=== PATIENT | male | born 1940 | race African-American/Black ===

== ENCOUNTER 2016-06-15 08:51 | Emergency (ER) | payer OTHER, BC ==
[~2016-06-15] VITALS: Ht 177.8 cm; Wt 95.7 kg
[~2016-06-15 08:51] MED LIST: A + D42.5 GM TOP; ACETAMINOPHEN325 M1 PO; AFEDITAB CR30 MG PO; AMLODIPINE BESYL5 MG PO; AMMONIUM LACTA225 GM TOP; AMPICILLIN TRI250 MG PO; ANTACID325 MG PO; ANTACID650 MG PO; ARANESP100 MCG/0. IJ; ARANESP40 MCG/0.4 SUBQ; ASPIRIN EC81 M1 PO; ATORVASTATIN CA10 MG PO; ATORVASTATIN CA80 MG PO; AUGMENTIN 500-1 EACH PO; AZOR PO; BACTRIM DS TAB1 EACH PO; BAYER CHEWABLE81 MG PO; BENADRYL25 MG PO; BENICAR40 MG PO; BISACODYL SUPP10 MG RECTAL; BYSTOLIC10 MG PO; CALCITRIOL0.5 MCG PO; CARDURA XL4 MG PO; CARDURA2 MG PO; CARDURA4 MG PO; CARDURA8 MG PO; CHLORHEXADINE120 M1 TOP; CIPRO250 M1 PO; CIPRO500 MG PO; CLEOCIN HCL300 MG PO; COLACE 100 MG100 MG PO; COLACE100 MG PO; COUMADIN 1MG TAB1 M1; COUMADIN 1MG TAB1 M1 PO; COUMADIN 3 MG TA3 MG; COUMADIN 3 MG TA3 MG PO; COUMADIN 4 MG TA4 M1 PO; COUMADIN 5 MG TA5 M1 PO; DEMADEX20 MG PO; DOXEPIN 10 MG C10 M1 PO; DOXYCYCLINE 10100 M1 PO; ETHYL CHLORI103.5 ML TP; EUCERIN CREME57 GM; EUCERIN CREME57 GM TOP; FLOMAX0.4 MG PO; GABAPENTIN100 MG PO; GLYCOLAX POWDER17 G1 PO; HYDRALAZINE 10M10 MG PO; HYDRALAZINE 2525 M1 PO; HYDRALAZINE 5050 MG PO; HYDROCERIN CREA1 JAR TOP; HYDROCODON-ACE1 EAC7 PO; INDAPAMIDE2.5 MG PO; IRON325 PO; JANTOVEN4 MG PO; KEFLEX500 M1 PO; KEFLEX500 MG PO; KLOR-CON 10 ER10 MEQ PO; LABETALOL 100100 MG PO; LACTINEX CHEWA1 EACH PO; LAMISIL250 MG PO; LANTUS SUBQ; LANTUS100 UNIT/M SUBQ; LIPITOR10 MG PO; LIPITOR80 MG PO; MAG-AL PLUS SUS30 ML PO; METOLAZONE 5 MG5 M1 PO; METOLAZONE 5 MG5 MG PO; MICARDIS HCT 81 EACH PO; MULTIVITAMINS1 EAC7; MULTIVITAMINS1 EAC7 PO; NEPHRO-VITE RX1 TA1 PO; NEPHRO-VITE TA0.8 MG; NIFEDICAL XL30 MG PO; NORCO 5-325 TA1 EACH PO; NORVASC10 MG PO; NOVOLOG100 UNIT/1; NOVOLOG100 UNIT/1 SUBQ; ORADENT 0.1% DEN5 G1; PANTOPRAZOLE SO40 M1 PO; PHOSLO667 M1 PO; PLAVIX 75 MG TA75 M1 PO; PROBIOTIC1 EAC1 PO; PROCRIT 1010000 U/ML IJ; PROTONIX40 M2 PO; SENNA PO; SIMETHICON CHEW80 M1 PO; SODIUM BICARBO650 M3 PO; TAMSULOSIN HCL0.4 MG PO; TRAMADOL 50 MG50 MG PO; TRIAMCINOLONE 080 G3 TOP; TUMS PO; UNICOMPLEX M TA1 TA1 PO; UREA CREAM 40%1 TUBE TP; WARFARIN SODIU7.5 MG PO
[2016-06-15 09:14] LABS: HEMATOCRIT 31.9 % (42.0-52.0); HEMOGLOBIN 10.7 gm/dL (14.0-18.0); MCH 27.6 pg (26.0-34.0); MCHC 33.6 % (28.0-37.0); MCV 82.2 fL (80.0-100.0); PLATELET COUNT 127 thou/uL (150-400); RBC 3.88 mil/uL (4.50-6.00); RDW 15.9 % (10.5-14.5); WBC 7.9 thou/uL (4.0-11.0)
[2016-06-15 09:16] LABS: MANUAL DIFF YES
[2016-06-15 09:24] LABS: CALCIUM 8.6 mg/dL (8.5-10.1); CREATININE 9.3 mg/dL (0.6-1.3); POTASSIUM 3.5 mmol/L (3.5-5.1)
[2016-06-15 09:26] LABS: ALBUMIN 3.2 g/dL (3.4-5.0); TOTAL BILIRUBIN 0.5 mg/dL (<0.1-1.0); TOTAL PROTEIN 8.6 g/dL (6.4-8.2)
[2016-06-15 09:53] LABS: ABSOLUTE NEUTROPHILS 7.2 thou/uL (1.4-8.2); PLATELET ESTIMATE NORMAL; TOTAL CELL COUNT 100
[2016-06-15] MEDS ORDERED: LEVAQUIN 500 M500 M2 PO ×2 (11:29→12:14)
[2016-06-15] MEDS ORDERED: ONDANSETRON HCL4 M2 PO (12:19)
== END 2016-06-15 13:00 | disposition home or self-care (01) ==
LOC: ER 08:51
PROVIDERS: Physician Assistant
DX: D64.9 Anemia, unspecified (principal); J18.9 Pneumonia, unspecified organism; E87.1 Hypo-osmolality and hyponatremia; N19 Unspecified kidney failure; R10.33 Periumbilical pain; E11.9 Type 2 diabetes mellitus without complications; I25.10 Atherosclerotic heart disease of native coronary artery without angina pectoris; I10 Essential (primary) hypertension; E78.00 Pure hypercholesterolemia, unspecified; Z91.040 Latex allergy status; Z87.891 Personal history of nicotine dependence; Z79.4 Long term (current) use of insulin; Z86.73 Personal history of transient ischemic attack (TIA), and cerebral infarction without residual deficits; Z86.14 Personal history of Methicillin resistant Staphylococcus aureus infection

== ENCOUNTER → 2016-08-06 | Outpatient (CLI) | payer OTHER, BC ==
[~2016-08-06] MED LIST changes: +LEVAQUIN 500 M500 M2 PO; +ONDANSETRON HCL4 M2 PO
--- NOTE | ~2016-08-06 | HC ---
[facility] [place] [address] CONSULTATION Name: RADHA DUMONT Room #: PRE [facility].#: [id number] Admission: Attend Phys: Bari Wallace MD Discharge: Date of : 42 Report #: [id number] THIS REPORT FOR: //name// CC: Sameer Wallace DATE OF SERVICE: 06/18/2016 WOUND CARE INITIAL VISIT PERSONAL PHYSICIAN: Radha Cazares DO. CHIEF COMPLAINT: Chronic foot wound, left lateral thigh ulcer and traumatic wound to the left chest. HISTORY OF PRESENT ILLNESS: This is a 75-year-old black male who has been a patient of mine for several months for an ulceration on the right transmetatarsal amputation site. The last time I saw the patient was approximately 3 weeks ago when we placed a skin substitute graft on his stump site. He states that home health nurses have believed that this is actually totally healed now. The patient, however, has developed an ulceration on his left lateral thigh from being in bed over the past few days, given his complaint of generalized weakness. The patient also states that he noted when he was being put in the ambulance yesterday they struck his left chest wall on the side of the door, causing a traumatic wound. I have been asked to assist in the care of these at this time. The patient once again is currently admitted for generalized weakness and decreased appetite. CURRENT MEDICATIONS: Multiple. I reviewed the patient's medication list. DRUG ALLERGIES: LATEX and METFORMIN. PAST MEDICAL HISTORY: Significant for a previous right transmetatarsal amputation in 2006; severe peripheral arterial disease; insulin-dependent diabetes; end-stage renal disease, on hemodialysis; hypertension; coronary artery disease and left [id number] amputation. SOCIAL HISTORY: The patient has had a history of smoking, but quit several years ago. He lives at home with his family. FAMILY HISTORY: Not pertinent to current medical condition. REVIEW OF SYSTEMS: CONSTITUTIONAL: The patient denies fevers or chills. NEUROLOGIC: The patient has generalized weakness, but no isolated weakness in the arms or legs. [address] [address] CONSULTATION Name: RADHA DUMONT Room #: PRE [facility] Sun#: [id number] Admission: Attend Phys: Bari Wallace MD Discharge: Date of : 42 Report #: [id number] EYES: No complaints. ENT: No complaints. CARDIAC: The patient denies chest pain, palpitations or peripheral edema. RESPIRATORY: The patient denies shortness breath, cough or wheezes. GASTROINTESTINAL: The patient has decreased appetite, but no actual abdominal pain, nausea, vomiting or diarrhea. GENITOURINARY: The patient denies urgency or frequency. MUSCULOSKELETAL: No complaints. SKIN: There is no previous ulceration and his right TMA site is healed. There is a stage 2 ulcer on his left lateral thigh and has a traumatic wound on his left chest wall. PHYSICAL EXAMINATION: VITAL SIGNS: Stable. The patient is afebrile. GENERAL: This is alert, oriented times 3, pleasant black male who appears somewhat more ill than his normal appearance. HEENT: Normocephalic, atraumatic. Mucous membranes are dry. Pupils are round. Sclerae white. NECK: Without JVD or masses. LUNGS: Slightly diminished breath sounds heard throughout, but no rhonchi or wheezes. CHEST: Nontender. On the left chest fall is a traumatic wound, which is clean and granulating, it is partial thickness. HEART: Regular. ABDOMEN: Soft, otherwise nontender without rebound or guarding. EXTREMITIES: Evaluation of the right lower extremity shows significant hyperkeratosis with a transmetatarsal amputation site, which is totally healed. There are no open wounds on the right lower extremity. On the left, BKA lateral thigh has a stage 2 decubitus ulcer, which is clean and granulating. Evaluation of the coccygeal area also reveals a stage 2 decubitus ulcer in the coccygeal region. NEUROLOGIC: Cranial nerves 2-12 are grossly. Motor and sensory grossly intact. LABORATORY DATA: White count 4.5, hemoglobin 8.8. WOUND CARE COURSE: At this time, I spoke at length with the patient and stated that we will just put moisturizer on his right lower extremity for his hyperkeratosis as well as start morphine and Silvadene cream to the sacrococcygeal region as well as to the left lateral thigh ulcer and the left chest fall for pain relief as well as to aid in the healing. We will order a low air loss mattress for the patient given his immobility. We will have the patient turned every 2 hours. We will make sure we maximize the patient's protein supplementation as his renal diet will allow. We will continue to follow the patient while he is here. [address] [address] CONSULTATION Name: RADHA DUMONT Room #: PRE [facility]#: [id number] Admission: Attend Phys: Bari Wallace MD Discharge: Date of : 42 Report #: [id number] I appreciate the ability to consult on this patient. <ELECTRONICALLY SIGNED> By: Bari Wallace MD 07/16/16 1301 1757 [id number] Bari Wallace MD /nt
== END ==
LOC: HYPER
DX: I70.234 Atherosclerosis of native arteries of right leg with ulceration of heel and midfoot (principal); L97.412 Non-pressure chronic ulcer of right heel and midfoot with fat layer exposed; E11.621 Type 2 diabetes mellitus with foot ulcer; E11.51 Type 2 diabetes mellitus with diabetic peripheral angiopathy without gangrene; Z89.421 Acquired absence of other right toe(s); E11.22 Type 2 diabetes mellitus with diabetic chronic kidney disease; I12.9 Hypertensive chronic kidney disease with stage 1 through stage 4 chronic kidney disease, or unspecified chronic kidney disease; N18.9 Chronic kidney disease, unspecified; Z79.4 Long term (current) use of insulin; E78.00 Pure hypercholesterolemia, unspecified; Z86.73 Personal history of transient ischemic attack (TIA), and cerebral infarction without residual deficits; Z87.891 Personal history of nicotine dependence

== ENCOUNTER → 2016-08-20 | Outpatient (CLI) | payer OTHER, BC | LOC: HYPER 07:00 | DX: I87.331 Chronic venous hypertension (idiopathic) with ulcer and inflammation of right lower extremity (principal); E11.622 Type 2 diabetes mellitus with other skin ulcer; L97.811 Non-pressure chronic ulcer of other part of right lower leg limited to breakdown of skin; E11.621 Type 2 diabetes mellitus with foot ulcer; L97.511 Non-pressure chronic ulcer of other part of right foot limited to breakdown of skin; E11.51 Type 2 diabetes mellitus with diabetic peripheral angiopathy without gangrene; E11.22 Type 2 diabetes mellitus with diabetic chronic kidney disease; I12.9 Hypertensive chronic kidney disease with stage 1 through stage 4 chronic kidney disease, or unspecified chronic kidney disease; N18.9 Chronic kidney disease, unspecified; R60.0 Localized edema; I25.10 Atherosclerotic heart disease of native coronary artery without angina pectoris; E78.00 Pure hypercholesterolemia, unspecified; Z79.4 Long term (current) use of insulin; Z89.421 Acquired absence of other right toe(s); Z86.73 Personal history of transient ischemic attack (TIA), and cerebral infarction without residual deficits; Z87.891 Personal history of nicotine dependence ==

== ENCOUNTER → 2016-09-29 | Outpatient (CLI) | payer OTHER, BC | LOC: HYPER 09-15 07:16 | DX: I87.2 Venous insufficiency (chronic) (peripheral) (principal); L97.812 Non-pressure chronic ulcer of other part of right lower leg with fat layer exposed; R60.0 Localized edema; E11.51 Type 2 diabetes mellitus with diabetic peripheral angiopathy without gangrene; I25.10 Atherosclerotic heart disease of native coronary artery without angina pectoris; E78.00 Pure hypercholesterolemia, unspecified; E11.22 Type 2 diabetes mellitus with diabetic chronic kidney disease; I12.9 Hypertensive chronic kidney disease with stage 1 through stage 4 chronic kidney disease, or unspecified chronic kidney disease; N18.9 Chronic kidney disease, unspecified; Z95.1 Presence of aortocoronary bypass graft; Z89.512 Acquired absence of left leg below knee; Z68.30 Body mass index [BMI] 30.0-30.9, adult; Z87.891 Personal history of nicotine dependence; Z89.421 Acquired absence of other right toe(s); Z79.4 Long term (current) use of insulin; Z86.73 Personal history of transient ischemic attack (TIA), and cerebral infarction without residual deficits; Z85.09 Personal history of malignant neoplasm of other digestive organs ==

== ENCOUNTER → 2016-10-29 | Outpatient (CLI) | payer OTHER, BC | LOC: HYPER 07:18 | DX: I87.2 Venous insufficiency (chronic) (peripheral) (principal); E11.622 Type 2 diabetes mellitus with other skin ulcer; L97.812 Non-pressure chronic ulcer of other part of right lower leg with fat layer exposed; E11.51 Type 2 diabetes mellitus with diabetic peripheral angiopathy without gangrene; I25.10 Atherosclerotic heart disease of native coronary artery without angina pectoris; E78.00 Pure hypercholesterolemia, unspecified; E11.22 Type 2 diabetes mellitus with diabetic chronic kidney disease; I12.9 Hypertensive chronic kidney disease with stage 1 through stage 4 chronic kidney disease, or unspecified chronic kidney disease; N18.9 Chronic kidney disease, unspecified; Z79.4 Long term (current) use of insulin; Z86.73 Personal history of transient ischemic attack (TIA), and cerebral infarction without residual deficits; Z85.09 Personal history of malignant neoplasm of other digestive organs; Z95.1 Presence of aortocoronary bypass graft; Z89.431 Acquired absence of right foot; Z89.512 Acquired absence of left leg below knee; Z87.891 Personal history of nicotine dependence ==

== ENCOUNTER → 2016-12-15 | Outpatient (CLI) | payer OTHER, BC | LOC: HYPER 11-26 06:58 | DX: I87.2 Venous insufficiency (chronic) (peripheral) (principal); L97.812 Non-pressure chronic ulcer of other part of right lower leg with fat layer exposed; E11.622 Type 2 diabetes mellitus with other skin ulcer; E11.51 Type 2 diabetes mellitus with diabetic peripheral angiopathy without gangrene; E11.22 Type 2 diabetes mellitus with diabetic chronic kidney disease; I12.9 Hypertensive chronic kidney disease with stage 1 through stage 4 chronic kidney disease, or unspecified chronic kidney disease; N18.9 Chronic kidney disease, unspecified; I25.10 Atherosclerotic heart disease of native coronary artery without angina pectoris; E78.00 Pure hypercholesterolemia, unspecified; Z89.421 Acquired absence of other right toe(s); Z79.4 Long term (current) use of insulin; Z86.73 Personal history of transient ischemic attack (TIA), and cerebral infarction without residual deficits; Z85.29 Personal history of malignant neoplasm of other respiratory and intrathoracic organs; Z95.1 Presence of aortocoronary bypass graft; Z89.512 Acquired absence of left leg below knee; Z89.431 Acquired absence of right foot; Z87.891 Personal history of nicotine dependence ==

== ENCOUNTER → 2017-01-19 | Outpatient (CLI) | payer OTHER, BC | LOC: HYPER 07:16 | DX: I87.2 Venous insufficiency (chronic) (peripheral) (principal); L97.812 Non-pressure chronic ulcer of other part of right lower leg with fat layer exposed; E11.622 Type 2 diabetes mellitus with other skin ulcer; E11.51 Type 2 diabetes mellitus with diabetic peripheral angiopathy without gangrene; I25.10 Atherosclerotic heart disease of native coronary artery without angina pectoris; E78.00 Pure hypercholesterolemia, unspecified; E11.22 Type 2 diabetes mellitus with diabetic chronic kidney disease; I12.9 Hypertensive chronic kidney disease with stage 1 through stage 4 chronic kidney disease, or unspecified chronic kidney disease; N18.9 Chronic kidney disease, unspecified; Z95.1 Presence of aortocoronary bypass graft; Z89.512 Acquired absence of left leg below knee; Z86.73 Personal history of transient ischemic attack (TIA), and cerebral infarction without residual deficits; Z79.4 Long term (current) use of insulin; Z89.421 Acquired absence of other right toe(s); Z87.891 Personal history of nicotine dependence ==

== ENCOUNTER → 2017-02-23 | Outpatient (CLI) | payer OTHER, BC | LOC: HYPER 07:08 | DX: I87.2 Venous insufficiency (chronic) (peripheral) (principal); E11.622 Type 2 diabetes mellitus with other skin ulcer; L97.812 Non-pressure chronic ulcer of other part of right lower leg with fat layer exposed; R60.0 Localized edema; E11.51 Type 2 diabetes mellitus with diabetic peripheral angiopathy without gangrene; E11.22 Type 2 diabetes mellitus with diabetic chronic kidney disease; N18.9 Chronic kidney disease, unspecified; Z86.73 Personal history of transient ischemic attack (TIA), and cerebral infarction without residual deficits; E78.00 Pure hypercholesterolemia, unspecified; Z95.1 Presence of aortocoronary bypass graft; Z87.891 Personal history of nicotine dependence; Z89.512 Acquired absence of left leg below knee; Z89.511 Acquired absence of right leg below knee ==

== ENCOUNTER → 2017-07-06 | Outpatient (CLI) | payer OTHER ==
[~2017-07-06] MED LIST changes: +CYCLOBENZAPRINE5 MG PO; +LABETALOL HCL100 MG PO; +NIFEDIPINE ER30 M1 PO; +NORCO 10-325 T1 EACH PO
== END ==
LOC: HYPER 06:50
DX: T87.89 Other complications of amputation stump (principal); E11.622 Type 2 diabetes mellitus with other skin ulcer; L97.812 Non-pressure chronic ulcer of other part of right lower leg with fat layer exposed; E11.51 Type 2 diabetes mellitus with diabetic peripheral angiopathy without gangrene; E11.22 Type 2 diabetes mellitus with diabetic chronic kidney disease; I12.9 Hypertensive chronic kidney disease with stage 1 through stage 4 chronic kidney disease, or unspecified chronic kidney disease; N18.9 Chronic kidney disease, unspecified; I87.2 Venous insufficiency (chronic) (peripheral); E78.00 Pure hypercholesterolemia, unspecified; I25.10 Atherosclerotic heart disease of native coronary artery without angina pectoris; Z89.421 Acquired absence of other right toe(s); Z79.4 Long term (current) use of insulin; Z86.73 Personal history of transient ischemic attack (TIA), and cerebral infarction without residual deficits; Z87.891 Personal history of nicotine dependence; Z95.1 Presence of aortocoronary bypass graft; Y83.5 Amputation of limb(s) as the cause of abnormal reaction of the patient, or of later complication, without mention of misadventure at the time of the procedure

== ENCOUNTER → 2017-07-22 | Outpatient (CLI) | payer OTHER | LOC: HYPER 07-20 07:04 | DX: T87.89 Other complications of amputation stump (principal); E11.622 Type 2 diabetes mellitus with other skin ulcer; I87.2 Venous insufficiency (chronic) (peripheral); L97.812 Non-pressure chronic ulcer of other part of right lower leg with fat layer exposed; R60.0 Localized edema; E11.51 Type 2 diabetes mellitus with diabetic peripheral angiopathy without gangrene; I25.10 Atherosclerotic heart disease of native coronary artery without angina pectoris; E78.00 Pure hypercholesterolemia, unspecified; Z79.4 Long term (current) use of insulin; Z86.73 Personal history of transient ischemic attack (TIA), and cerebral infarction without residual deficits; Z95.1 Presence of aortocoronary bypass graft; Z89.512 Acquired absence of left leg below knee; Z89.431 Acquired absence of right foot; Z87.891 Personal history of nicotine dependence; Y83.5 Amputation of limb(s) as the cause of abnormal reaction of the patient, or of later complication, without mention of misadventure at the time of the procedure ==

== ENCOUNTER → 2017-08-05 | Outpatient (CLI) | payer OTHER | LOC: HYPER 07:00 | DX: T87.89 Other complications of amputation stump (principal); E11.622 Type 2 diabetes mellitus with other skin ulcer; L97.812 Non-pressure chronic ulcer of other part of right lower leg with fat layer exposed; E11.51 Type 2 diabetes mellitus with diabetic peripheral angiopathy without gangrene; I87.2 Venous insufficiency (chronic) (peripheral); I10 Essential (primary) hypertension; E78.00 Pure hypercholesterolemia, unspecified; L84 Corns and callosities; I25.10 Atherosclerotic heart disease of native coronary artery without angina pectoris; Z85.038 Personal history of other malignant neoplasm of large intestine; Z86.73 Personal history of transient ischemic attack (TIA), and cerebral infarction without residual deficits; Z79.4 Long term (current) use of insulin; Z87.891 Personal history of nicotine dependence; Z95.1 Presence of aortocoronary bypass graft; Y83.5 Amputation of limb(s) as the cause of abnormal reaction of the patient, or of later complication, without mention of misadventure at the time of the procedure ==

== ENCOUNTER → 2017-08-19 | Outpatient (CLI) | payer OTHER | LOC: HYPER 07:23 | DX: T87.89 Other complications of amputation stump (principal); E11.622 Type 2 diabetes mellitus with other skin ulcer; L97.812 Non-pressure chronic ulcer of other part of right lower leg with fat layer exposed; I87.2 Venous insufficiency (chronic) (peripheral); E11.51 Type 2 diabetes mellitus with diabetic peripheral angiopathy without gangrene; Z79.4 Long term (current) use of insulin; R60.0 Localized edema; E11.22 Type 2 diabetes mellitus with diabetic chronic kidney disease; I12.9 Hypertensive chronic kidney disease with stage 1 through stage 4 chronic kidney disease, or unspecified chronic kidney disease; N18.9 Chronic kidney disease, unspecified; E78.00 Pure hypercholesterolemia, unspecified; Z86.73 Personal history of transient ischemic attack (TIA), and cerebral infarction without residual deficits; Z95.1 Presence of aortocoronary bypass graft; Z87.891 Personal history of nicotine dependence; Y83.5 Amputation of limb(s) as the cause of abnormal reaction of the patient, or of later complication, without mention of misadventure at the time of the procedure ==

== ENCOUNTER 2017-08-27 13:31 | Emergency (ER) | payer OTHER ==
[~2017-08-27] VITALS: Ht 177.8 cm; Wt 96.6 kg
[~2017-08-27 13:31] MED LIST changes: -CYCLOBENZAPRINE5 MG PO; -LABETALOL HCL100 MG PO; -NIFEDIPINE ER30 M1 PO; -NORCO 10-325 T1 EACH PO
[2017-08-27 14:31] LABS: URINE BILIRUBIN NEGATIVE (Negative); URINE BLOOD 3+ (Negative); URINE CLARITY CLOUDY; URINE GLUCOSE-RANDOM* NEGATIVE (Negative); URINE KETONES NEGATIVE (Negative); URINE NITRITE-REFLEX NEGATIVE (Negative); URINE PROTEIN (DIPSTICK) 2+ (Negative); URINE UROBILINOGEN 0.2 E.U./dl (0.2-1.0)
[2017-08-27 14:34] LABS: URINE LEUKOCYTES-REFLEX 3+ (Negative)
[2017-08-27 14:37] LABS: URINE COLOR PINK
[2017-08-27 14:41] LABS: ABSOLUTE NEUTROPHILS 9.3 thou/uL (1.4-8.2); BASOPHILS 0.6 % (0.0-2.0); HEMATOCRIT 31.8 % (42.0-52.0); HEMOGLOBIN 10.3 gm/dL (14.0-18.0); LYMPHOCYTES 8.7 % (24.0-44.0); MCH 26.6 pg (26.0-34.0); MCHC 32.3 g/dL (28.0-37.0); MCV 82.2 fL (80.0-100.0); MONOCYTES 4.8 % (1.0-8.0); PLATELET COUNT 127 thou/uL (150-400); POLYS 83.9 % (36.0-66.0); RBC 3.87 mil/uL (4.50-6.00); RDW 16.5 % (10.5-14.5); WBC 11.1 thou/uL (4.0-11.0)
[2017-08-27 14:42] LABS: BACTERIA-REFLEX >30 Many /HPF (None Seen); CASTS None Seen /LPF (None Seen); CRYSTALS None Seen /LPF (None Seen); SQUAMOUS None Seen /LPF (0-3); URINE RBC >20 Many /HPF (0-2); URINE WBC-REFLEX >25 Many /HPF (0-5); WBC CLUMPS Packed (None Seen)
[2017-08-27 15:08] LABS: CALCIUM 9.3 mg/dL (8.5-10.1); CREATININE 5.4 mg/dL (0.7-1.3); POTASSIUM 4.9 mmol/L (3.5-5.1)
[2017-08-27 15:11] LABS: ALBUMIN 3.6 g/dL (3.4-5.0); TOTAL BILIRUBIN 0.8 mg/dL (<0.1-1.0); TOTAL PROTEIN 8.8 g/dL (6.4-8.2)
[2017-08-27] MEDS ORDERED: KEFLEX500 M1 PO (15:11)
== END 2017-08-27 16:38 | disposition home or self-care (01) ==
LOC: ER 13:31
PROVIDERS: Emergency Medicine
DX: N39.0 Urinary tract infection, site not specified (principal); I10 Essential (primary) hypertension; E11.9 Type 2 diabetes mellitus without complications; I25.10 Atherosclerotic heart disease of native coronary artery without angina pectoris; E78.00 Pure hypercholesterolemia, unspecified; Z87.891 Personal history of nicotine dependence; Z91.040 Latex allergy status

== ENCOUNTER 2017-11-24 09:49 | Emergency (ER) | payer OTHER ==
[~2017-11-24] VITALS: Ht 170.2 cm; Wt 96.6 kg
--- NOTE | ~2017-11-24 | HC ---
[facility] [address] CONSULTATION Name: JULIARADHA GÉNESIS Room #: DEP Sun#: [id number] Admission: 11/24/17 Attend Phys: Discharge: 11/24/17 Date of : 42 Report #: [id number] THIS REPORT FOR: //name// CC: Janae Holley The patient is a 76-year-old male who has had a 2-3 year history of a suprapubic tube. He states that the home healthcare nurse had stated it was getting harder and harder to change and she thought he needed a smaller catheter. He has only had a 16-Canadian catheter in his suprapubic site. 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 He states sometime last night, his suprapubic tube catheter came out, so it has been out for over 12 hours of period. Emergency Room team had tried multiple different times to put a catheter through the site, but it was totally obstructed. PAST MEDICAL HISTORY: Per the chart. PHYSICAL EXAMINATION: His suprapubic tube site is totally scarred down to just a pinpoint opening. In fact I am surprised we were able to get a catheter through that whatsoever. IMPRESSION AND PLAN: Urinary retention. We are going to attempt to pass a wire and possibly dilate the suprapubic tube site or the urethra. If not, he will need Interventional Radiology for placement of the suprapubic tube and would recommend placing a larger catheter given the scar tissue that he is noted to have around this current site. PROCEDURE NOTE: The area was prepped and draped. I tried a 0.035 sensor wire. I was able to get something through, but dilating was good what sounds just had total rock tissue with little and very uncomfortable for the patient. I did attempt to pass a 12-Canadian catheter through the site opening, it would not pass. I tried a 16-Canadian cher-ae heights tip catheter over the wire. It would not pass. I tried to pass a cher-ae heights tip catheter over wire through the urethra. It would not pass because this urethra was obliterated. After multiple different attempts to try to pass the catheter, I have recommended that Interventional Radiology place a larger suprapubic tubes. I have also recommended that patient be given Cipro 500 mg x 1 for intervention. By: 1403 [id number] Julio Gómez MD /nt
== END 2017-11-24 14:53 | disposition home or self-care (01) ==
LOC: ER 09:49
DX: T83.098A Other mechanical complication of other urinary catheter, initial encounter (principal); E11.9 Type 2 diabetes mellitus without complications; I10 Essential (primary) hypertension; I25.10 Atherosclerotic heart disease of native coronary artery without angina pectoris; E78.00 Pure hypercholesterolemia, unspecified; Z85.46 Personal history of malignant neoplasm of prostate; Z90.79 Acquired absence of other genital organ(s); Z91.040 Latex allergy status; Z88.2 Allergy status to sulfonamides; Z87.891 Personal history of nicotine dependence

== ENCOUNTER → 2017-11-25 | Outpatient (CLI) | payer OTHER ==
[2017-11-25 08:55] LABS: HEMATOCRIT 34.1 % (42.0-52.0); HEMOGLOBIN 11.7 gm/dL (14.0-18.0); MCHC 34.2 g/dL (28.0-37.0); RBC 4.31 mil/uL (4.50-6.00); RDW 17.7 % (10.5-14.5); WBC 8.6 thou/uL (4.0-11.0)
[2017-11-25 09:08] LABS: CALCIUM 8.8 mg/dL (8.5-10.1); CREATININE 7.6 mg/dL (0.7-1.3); POTASSIUM 4.4 mmol/L (3.5-5.1)
[2017-11-25 09:09] LABS: APTT 22.7 Seconds (24.5-32.8); PROTIME 10.7 Seconds (9.3-11.4)
[2017-11-25 11:39] VITALS: BP 100/62
== END | disposition home or self-care (01) ==
LOC: SPEC 08:23
PROVIDERS: Radiology Vascular & Interventional Radiology
DX: R33.8 Other retention of urine (principal); I12.0 Hypertensive chronic kidney disease with stage 5 chronic kidney disease or end stage renal disease; E11.22 Type 2 diabetes mellitus with diabetic chronic kidney disease; N18.6 End stage renal disease; Z99.2 Dependence on renal dialysis; E11.51 Type 2 diabetes mellitus with diabetic peripheral angiopathy without gangrene; I25.10 Atherosclerotic heart disease of native coronary artery without angina pectoris; Z86.73 Personal history of transient ischemic attack (TIA), and cerebral infarction without residual deficits; Z98.890 Other specified postprocedural states; Z85.46 Personal history of malignant neoplasm of prostate; E78.00 Pure hypercholesterolemia, unspecified; Z87.891 Personal history of nicotine dependence

== ENCOUNTER 2017-11-30 14:22 | Emergency (ER) | payer OTHER ==
[~2017-11-30] VITALS: Ht 177.8 cm; Wt 96.6 kg
[2017-11-30 15:15] LABS: URINE BILIRUBIN NEGATIVE (Negative); URINE BLOOD 2+ (Negative); URINE CLARITY CLEAR; URINE COLOR YELLOW; URINE GLUCOSE-RANDOM* NEGATIVE (Negative); URINE KETONES TRACE (Negative); URINE LEUKOCYTES-REFLEX TRACE (Negative); URINE NITRITE-REFLEX NEGATIVE (Negative); URINE PROTEIN (DIPSTICK) 2+ (Negative); URINE UROBILINOGEN 0.2 E.U./dl (0.2-1.0)
[2017-11-30 15:27] LABS: BACTERIA-REFLEX None Seen /HPF (None Seen); CASTS None Seen /LPF (None Seen); CRYSTALS None Seen /LPF (None Seen); MUCUS >6 Heavy strn/LPF (None Seen); SQUAMOUS 0-3 Few /LPF (0-3); URINE RBC 3-10 Few /HPF (0-2); URINE WBC-REFLEX 6-15 Few /HPF (0-5); WBC CLUMPS Few (None Seen)
[2017-11-30] MEDS ORDERED: CIPRO500 MG PO (15:53)
[2017-11-30] MEDS ORDERED: CYCLOBENZAPRINE5 MG PO (15:54)
[2017-11-30] MEDS ORDERED: NORCO 10-325 T1 EACH PO (15:54)
[2017-11-30] MEDS ORDERED: NIFEDIPINE ER30 M1 PO (15:56)
[2017-11-30] MEDS ORDERED: LABETALOL HCL100 MG PO (15:56)
== END 2017-11-30 16:40 | disposition home or self-care (01) ==
LOC: ER 14:22
PROVIDERS: Physician Assistant
DX: N39.0 Urinary tract infection, site not specified (principal); E11.9 Type 2 diabetes mellitus without complications; I10 Essential (primary) hypertension; I25.10 Atherosclerotic heart disease of native coronary artery without angina pectoris; E78.00 Pure hypercholesterolemia, unspecified; Z87.39 Personal history of other diseases of the musculoskeletal system and connective tissue; Z79.4 Long term (current) use of insulin; Z90.79 Acquired absence of other genital organ(s); Z85.46 Personal history of malignant neoplasm of prostate; Z86.73 Personal history of transient ischemic attack (TIA), and cerebral infarction without residual deficits; Z87.891 Personal history of nicotine dependence; Z91.040 Latex allergy status; Z88.8 Allergy status to other drugs, medicaments and biological substances

== ENCOUNTER → 2017-12-09 | Outpatient (CLI) | payer OTHER ==
[~2017-12-09] MED LIST changes: +CYCLOBENZAPRINE5 MG PO; +LABETALOL HCL100 MG PO; +NIFEDIPINE ER30 M1 PO; +NORCO 10-325 T1 EACH PO
== END ==
LOC: HYPER 11-30 06:59
DX: T87.89 Other complications of amputation stump (principal); E11.622 Type 2 diabetes mellitus with other skin ulcer; L97.812 Non-pressure chronic ulcer of other part of right lower leg with fat layer exposed; E11.51 Type 2 diabetes mellitus with diabetic peripheral angiopathy without gangrene; E11.22 Type 2 diabetes mellitus with diabetic chronic kidney disease; I12.9 Hypertensive chronic kidney disease with stage 1 through stage 4 chronic kidney disease, or unspecified chronic kidney disease; N18.9 Chronic kidney disease, unspecified; I25.10 Atherosclerotic heart disease of native coronary artery without angina pectoris; E78.00 Pure hypercholesterolemia, unspecified; Z79.4 Long term (current) use of insulin; Z86.73 Personal history of transient ischemic attack (TIA), and cerebral infarction without residual deficits; Z89.421 Acquired absence of other right toe(s); Z87.891 Personal history of nicotine dependence; Z95.1 Presence of aortocoronary bypass graft; Y83.5 Amputation of limb(s) as the cause of abnormal reaction of the patient, or of later complication, without mention of misadventure at the time of the procedure

== ENCOUNTER → 2017-12-23 | Outpatient (CLI) | payer OTHER ==
[~2017-12-23] VITALS: Ht 177.8 cm; Wt 96.6 kg
[2017-12-23 09:31] VITALS: BP 170/87
[2017-12-23 11:33] LABS: BASOPHILS 0.3 % (0.0-2.0); EOSINOPHILS 4.2 % (0.0-3.0); HEMATOCRIT 36.3 % (42.0-52.0); LYMPHOCYTES 19.7 % (24.0-44.0); MCH 26.6 pg (26.0-34.0); MCV 80.5 fL (80.0-100.0); MONOCYTES 6.5 % (1.0-8.0); PLATELET COUNT 117 thou/uL (150-400); POLYS 69.3 % (36.0-66.0); RBC 4.51 mil/uL (4.50-6.00); RDW 18.6 % (10.5-14.5); WBC 5.8 thou/uL (4.0-11.0)
[2017-12-23 11:47] LABS: ALBUMIN 3.8 g/dL (3.4-5.0); ANION GAP 5 mmol/L (7-16); BUN 29 mg/dL (7-18); CALCIUM 9.4 mg/dL (8.5-10.1); CHLORIDE 102 mmol/L (98-107); CHOLESTEROL 153 mg/dL (<200); CO2 28 mmol/L (21-32); CREATININE 5.4 mg/dL (0.7-1.3); GLUCOSE 95 mg/dL (74-106); HDL CHOLESTEROL 48 mg/dL (>40); LDL CHOLESTEROL 97 mg/dL (<100); MAGNESIUM 2.2 mg/dL (1.8-2.4); POTASSIUM 4.4 mmol/L (3.5-5.1); SGOT 13 U/L (15-37); SGPT 13 U/L (30-65); SODIUM 135 mmol/L (136-145); TC:HDL 3.2 Ratio (Not establshd); TOTAL BILIRUBIN 0.5 mg/dL (<0.1-1.0); TOTAL PROTEIN 8.6 g/dL (6.4-8.2); TRIGLYCERIDE 43 mg/dL (<150); VLDL 9 mg/dL (<40)
[2017-12-23 12:32] LABS: TSH 1.629 uIU/mL (0.358-3.740)
[2017-12-23 12:54] LABS: ANISOCYTOSIS 1+; MICROCYTES 1+; PLATELET ESTIMATE NORMAL
[2017-12-24 02:08] LABS: GLYCOHEMOGLOBIN (HGB A1C) 5.1 % (4.8-5.6)
== END ==
LOC: SEN 08:00
PROVIDERS: Nurse Practitioner Family
DX: Z09 Encounter for follow-up examination after completed treatment for conditions other than malignant neoplasm (principal); I10 Essential (primary) hypertension; E11.9 Type 2 diabetes mellitus without complications; E78.00 Pure hypercholesterolemia, unspecified

== ENCOUNTER 2018-02-22 09:19 | Emergency (ER) | payer OTHER ==
[~2018-02-22] VITALS: Ht 175.3 cm; Wt 95.7 kg
[2018-02-22 11:03] LABS: URINE BILIRUBIN NEGATIVE (Negative); URINE BLOOD 3+ (Negative); URINE CLARITY CLOUDY; URINE COLOR RED; URINE GLUCOSE-RANDOM* TRACE (Negative); URINE KETONES NEGATIVE (Negative); URINE LEUKOCYTES-REFLEX 2+ (Negative); URINE NITRITE-REFLEX NEGATIVE (Negative); URINE PROTEIN (DIPSTICK) 3+ (Negative); URINE SPECIFIC GRAVITY 1.015 (1.005-1.035); URINE UROBILINOGEN 0.2 E.U./dl (0.2-1.0)
[2018-02-22 11:11] LABS: CASTS None Seen /LPF (None Seen); SQUAMOUS 0-3 Few /LPF (0-3); URINE WBC-REFLEX >25 Many /HPF (0-5)
[2018-02-22 11:12] LABS: BACTERIA-REFLEX 1-9 Few /HPF (None Seen); CRYSTALS None Seen /LPF (None Seen); WBC CLUMPS Moderate (None Seen)
[2018-02-22] MEDS ORDERED: CIPRO500 MG PO (11:16)
== END 2018-02-22 11:40 | disposition home or self-care (01) ==
LOC: ER 09:19
PROVIDERS: Nurse Practitioner Family
DX: T83.018A Breakdown (mechanical) of other urinary catheter, initial encounter (principal); R33.9 Retention of urine, unspecified; N39.0 Urinary tract infection, site not specified; R31.9 Hematuria, unspecified; I10 Essential (primary) hypertension; E11.9 Type 2 diabetes mellitus without complications; E78.00 Pure hypercholesterolemia, unspecified; Z90.79 Acquired absence of other genital organ(s); Z86.73 Personal history of transient ischemic attack (TIA), and cerebral infarction without residual deficits; Z87.891 Personal history of nicotine dependence; Z91.040 Latex allergy status; Z88.8 Allergy status to other drugs, medicaments and biological substances

== ENCOUNTER 2018-03-25 06:05 | Emergency (ER) | payer OTHER ==
[~2018-03-25] VITALS: Ht 104.1 cm; Wt 83.9 kg
[2018-03-25 09:40] VITALS: BP 185/94
== END 2018-03-25 10:31 | disposition home or self-care (01) ==
LOC: ER 06:05
DX: T83.098A Other mechanical complication of other urinary catheter, initial encounter (principal); Y84.6 Urinary catheterization as the cause of abnormal reaction of the patient, or of later complication, without mention of misadventure at the time of the procedure; Y82.8 Other medical devices associated with adverse incidents

== ENCOUNTER → 2018-04-12 | Outpatient (CLI) | payer OTHER ==
[~2018-04-12] MED LIST changes: +ETHYL CHLORI103.5 ML SPRAY; +RENAPLEX-D TAB1 EACH PO
[2018-04-12 08:56] VITALS: BP 159/81
== END ==
LOC: SEN 04-07 17:19
DX: I12.9 Hypertensive chronic kidney disease with stage 1 through stage 4 chronic kidney disease, or unspecified chronic kidney disease (principal); E11.22 Type 2 diabetes mellitus with diabetic chronic kidney disease; N18.9 Chronic kidney disease, unspecified; E11.9 Type 2 diabetes mellitus without complications; E55.9 Vitamin D deficiency, unspecified; K21.9 Gastro-esophageal reflux disease without esophagitis; Z79.4 Long term (current) use of insulin

== ENCOUNTER 2018-05-27 11:16 | Inpatient (IN) | payer OTHER ==
[~2018-05-27] VITALS: Ht 175.3 cm; Wt 91.4 kg
[2018-05-27 11:17] VITALS: BP 135/75
[2018-05-27 12:03] LABS: HEMATOCRIT 32.5 % (42.0-52.0); HEMOGLOBIN 10.9 gm/dL (14.0-18.0); MCH 26.1 pg (26.0-34.0); MCHC 33.5 g/dL (28.0-37.0); MCV 77.9 fL (80.0-100.0); RBC 4.18 mil/uL (4.50-6.00); RDW 17.4 % (10.5-14.5); WBC 25.6 thou/uL (4.0-11.0)
[2018-05-27 12:10] LABS: CALCIUM 8.5 mg/dL (8.5-10.1); CREATININE 6.6 mg/dL (0.7-1.3)
[2018-05-27 12:11] LABS: POTASSIUM 2.7 mmol/L (3.5-5.1)
[2018-05-27 12:16] LABS: ALBUMIN 2.9 g/dL (3.4-5.0); TOTAL PROTEIN 7.6 g/dL (6.4-8.2)
[2018-05-27 12:24] LABS: ABSOLUTE NEUTROPHILS 24.3 thou/uL (1.4-8.2); ATYPICAL LYMPHS 1 %
[2018-05-27 12:26] LABS: ANISOCYTOSIS 1+; PLATELET COUNT 93 thou/uL (150-400)
[2018-05-27 13:33] VITALS: BP 122/66
[2018-05-27 13:45] VITALS: BP 122/66
[2018-05-27 14:36] VITALS: BP 111/62
--- NOTE | 2018-05-27 16:10 | NUR ---
assessment: CM REVIEWED CHART AND MET WITH PATIENT AND HIS AT THE BEDSIDE. PT IS ALERT AND ORIENTED X4. PT WAS ADMITTED FOR DIARRHEA AND IS BEING TESTED FOR CDIFF. PT REPORTS HE LIVES AT HOME WITH HIS IN A HOUSE. PT REPORTS HAVING A RAMP TO ENTER INTO THE HOME AND NO STEPS ONCE INSIDE. PT REPORTS HE AMBULTES IN WHEELCHAIR. PT IS CURRENTLY IN SERVICES WITH [facility] AND GOES TO [facility]([phone]) [facility] FOR DIALYSIS M/W/F. PT REPORTS HE HAS BEEN TO [facility] IN THE PAST. PT STATES HE FEELS WEAK AND MAY NEED TO GO TO REHAB AGAIN AND IF SO WOULD LIKE TO GO BACK TO [facility]. CM WILL CONTINUE TO FOLLOW PENDING RECOMMENDATIONS.
[2018-05-27] MEDS ORDERED: RENAPLEX-D TAB1 EACH PO (18:22)
[2018-05-27] MEDS ORDERED: NITROGLYCERIN0.4 MG SUBLING (18:25)
--- NOTE | 2018-05-27 18:38 | NUR ---
PATIENT ADMIT TO UNIT FROM ER AT 1430. A/O X4. PLEASANT. NO DIARRHA NOTED AFTER BEEM ADMIT TO UNIT. C/O LEFT LEG PAIN. PATIENT HAD LEFT BKA AND RIGHT FOOT PARTIAL AMPUTATION. ON BED REST. VSS. WILL KEEP MONITOR.
[2018-05-27 20:13] VITALS: BP 100/51
[2018-05-28 00:30] VITALS: BP 100/64
--- NOTE | 2018-05-28 03:51 | NUR ---
PATIENT IS ALERT AND ORIENTED. PATIENT IS BED REST Q2TURN. PATIENT HAS A RTFA FISTULA. PATIENT IS PENDING DIAYLSIS TODAY. PATIENT HAS NOT HAD A STOOL SENSE HE CAME TO THIS FLOOR. PATIENT IS NSR. PATIENT HAS A SUPRA PUBLIC CATH. PATIENT HAS VERY FAINT PULSE IS LRE. PATIENT HAS POOR OXYGENATION TO LOWER EXTREMITY SKIN IS SCALEY NO OPEN WOUNDS. PATIENTS PAIN IS PARTLY TREATED WITH PAIN MEDICATION. LOW AIR LOSS PUMP WAS ORDERED FOR BED. PATIENT CALLS OFTEN TO BE TURNED. PATIENT IS ON ROOM AIR. PATIENT IS RESTING IN BED. WCM. PATIENT IS PROGRESSING TO GOALS.
[2018-05-28 03:57] VITALS: BP 90/49
[2018-05-28 05:21] LABS: HEMATOCRIT 34.1 % (42.0-52.0); HEMOGLOBIN 10.7 gm/dL (14.0-18.0); MCH 25.3 pg (26.0-34.0); MCHC 31.5 g/dL (28.0-37.0); MCV 80.2 fL (80.0-100.0); PLATELET COUNT 89 thou/uL (150-400); RBC 4.25 mil/uL (4.50-6.00); RDW 17.2 % (10.5-14.5); WBC 33.1 thou/uL (4.0-11.0)
[2018-05-28 05:36] LABS: CALCIUM 8.7 mg/dL (8.5-10.1); MAGNESIUM 1.8 mg/dL (1.8-2.4)
[2018-05-28 05:38] LABS: POTASSIUM 4.1 mmol/L (3.5-5.1)
[2018-05-28 06:15] LABS: ABSOLUTE NEUTROPHILS 29.8 thou/uL (1.4-8.2); METAMYELOCYTES 1 %
[2018-05-28 06:16] LABS: PLATELET ESTIMATE DECREASED
[2018-05-28 06:21] LABS: ANISOCYTOSIS 1+
[2018-05-28 08:29] VITALS: BP 99/55
[2018-05-28 13:13] LABS: ICTOTEST (BILI CONFIRMATORY) Negative (Negative); URINE BILIRUBIN NEGATIVE (Negative); URINE CLARITY CLOUDY; URINE COLOR RED; URINE GLUCOSE-RANDOM* NEGATIVE (Negative); URINE KETONES NEGATIVE (Negative); URINE PROTEIN (DIPSTICK) 3+ (Negative)
[2018-05-28 13:14] LABS: URINE BLOOD 3+ (Negative); URINE LEUKOCYTES-REFLEX 3+ (Negative); URINE NITRITE-REFLEX POSITIVE (Negative); URINE UROBILINOGEN 0.2 E.U./dl (0.2-1.0)
[2018-05-28 13:16] LABS: CASTS None Seen /LPF (None Seen); CRYSTALS None Seen /LPF (None Seen); SQUAMOUS None Seen /LPF (0-3); URINE RBC >20 Many /HPF (0-2); URINE WBC-REFLEX 6-15 Few /HPF (0-5)
[2018-05-28 16:00] VITALS: BP 123/61
--- NOTE | 2018-05-28 18:15 | NUR ---
ASSUMED PATIENT CARE AT 0700. A/O X4. NOTED SUPRAPUBIC CATH LEAKING. BLOOD TINED URINE IN CATH. PATIENT HAS LOWER GRADE TEMP. STARTED HD AT 1330. POOR APPETITE. FAMILY AT BEDSIDE. [facility] CONSULT CALLED. NOT TOWARDS POC GOALS.
[2018-05-28 20:00] VITALS: BP 106/64
[2018-05-29 04:10] VITALS: BP 107/51
--- NOTE | 2018-05-29 05:00 | NUR ---
PATIENT IS ADVANCING SLOWLY IN HIS CARE PLAN. VITAL SIGNS STABLE WITH PATIENT HAVING NO COMPLAINTS OF NAUSEA. PATIENT DID COMPLAIN OF PAIN IN LOWER EXTREMITY AND SHOULDER WHICH WAS TREATED EFFECTIVELY WITH PRN MEDICATIONS AND NON PHARMACOLOGICAL INTERVENTIONS. PATIENT MOSTLY ORIENTED AND ABLE TO PARTICIPATE IN CARE PLAN AND CALL SOMEWHAT. DIALYSIS COMPLETED DURING EARLY PORTION OF SHIFT. PATIENT HAS HAD MULTIPLE INCONTINENT BOWEL MOVEMENTS WITH SAMPLE SENT TO LAB. SUPRA PUBIC CATH WITH LIMITED BLOODY OUTPUT. PATIENT HAS BEEN TURNED FREQUENTLY WITH BARRIER CREAM APPLIED. TWO AREAS OF SKIN BREAKDOWN FOUND ON SHIFT WITH PICTURES TAKEN AND CONSULT TO WOUND CARE NURSE ORDERED. CONTINUE PLAN OF CARE.
[2018-05-29 07:44] VITALS: BP 97/51
[2018-05-29 07:55] LABS: ABSOLUTE NEUTROPHILS 13.5 thou/uL (1.4-8.2); BASOPHILS 0.2 % (0.0-2.0); EOSINOPHILS 0.5 % (0.0-3.0); HEMATOCRIT 31.5 % (42.0-52.0); HEMOGLOBIN 10.3 gm/dL (14.0-18.0); LYMPHOCYTES 2.7 % (24.0-44.0); MCHC 32.8 g/dL (28.0-37.0); MCV 79.5 fL (80.0-100.0); MONOCYTES 2.9 % (1.0-8.0); PLATELET COUNT 71 thou/uL (150-400); POLYS 93.7 % (36.0-66.0); RBC 3.97 mil/uL (4.50-6.00); RDW 16.9 % (10.5-14.5)
[2018-05-29 07:59] LABS: WBC 14.4 thou/uL (4.0-11.0)
--- NOTE | 2018-05-29 11:24 | HC ---
[facility] [place] [address] CONSULTATION Name: RADHA DUMONT Room #: 353-P [facility] ..#: [id number] Admission: 05/27/18 Attend Phys: Jeison Mar MD Discharge: Date of : 42 Report #: [id number] THIS REPORT FOR: //name// CC: FAM unknown Jeison Mar DATE OF SERVICE: 05/28/2018 CONSULTATION: Infectious diseases. HISTORY OF PRESENT ILLNESS: Radha Dumont is a 77-year-old -Swiss gentleman who comes to the hospital 05/27/2018 complaining of one day of profuse diarrhea associated with abdominal cramps. Diarrhea precluded going to dialysis the day of admission. The patient was admitted to the hospital with concerns with acute abdominal catastrophe and dehydration. The patient has a past history, which includes diabetes with hypertension, hyperlipidemia, coronary artery disease treated with bypass grafting, and peripheral artery disease. The patient has diabetic foot wounds, which resulted in a left below knee amputation and a right transmetatarsal amputation. Other procedures include placement of a suprapubic catheter for bladder drainage. ALLERGIES: THE PATIENT HAS DRUG ALLERGIES TO METFORMIN. FAMILY HISTORY: Noncontributory. SOCIAL HISTORY: The patient is . He is retired. He did use tobacco and alcohol in the past, but none recently. MEDICATION RECONCILIATION: Current medication include pantoprazole 40 mg daily, heparin 5000 units subQ b.i.d., sliding scale insulin, p.r.n. glucagon and glucose, hydrocodone, nitroglycerin, ondansetron and currently has been started on vancomycin 125 mg p.o. q.i.d. for possible C. difficile disease. REVIEW OF SYSTEMS: CONSTITUTIONAL: The patient has not been complaining of fevers, chills or sweats. ENT: No headache, sinus congestion, sore throat, trouble swallowing. CHEST: The patient denies cough, chest pain, shortness of breath. GASTROINTESTINAL: The patient had the copious diarrhea. He did not only have abdominal pain since coming to the hospital, the patient actually has not had any further stools. His appetite has been preserved through this illness. GENITOURINARY: The patient is on dialysis. No urinary symptoms. SP catheter EXTREMITIES: No complaints. PHYSICAL EXAMINATION: [address] [place] [address] CONSULTATION Name: RADHA DUMONT Room #: 353-P [facility] M.R.#: [id number] Admission: 05/27/18 Attend Phys: Jeison Mar MD Discharge: Date of : 42 Report #: [id number] GENERAL: The patient appears comfortable, not in any distress. VITAL SIGNS: His temperature is normal, blood pressure 106/64. SKIN: Without rash or lesions. Surgical wound is well healed. ENT: Negative. HEART: Sounds normal. LUNGS: Clear. ABDOMEN: Belly soft, nontender. Bloody urine from suprapubic catheter. EXTREMITIES: Surgical changes,, abnormal dyshydrotic skin on both legs, otherwise unremarkable. dialysis fistula right arm looks ok LABORATORY STUDIES: Show the white count was 25,000 in the ER and 30,000 this morning with 83% polys, 7% bands. Hemoglobin is 10.7, hematocrit 34%, platelet 89,000. Electrolytes were normal except potassium 2.7 in the ER, now up to 4.1 after replacement. BUN 41, creatinine 8. Liver function tests are normal. Urinalysis showed greater than 20 red cells, 6-15 white cells. Cultures are pending. CT scan of the chest and abdomen was unremarkable except for some left lower lobe atelectasis or infiltrates. CT showed cystitis, no colitis. During the night, there was call that the patient's blood cultures are growing gram-negative organisms. IMPRESSION: The patient's presentation really looks like a viral type diarrhea. Norovirus is typical for causing a sudden onset of severe diarrhea, which then quickly resolves. Gram negatives in the blood with bloody suprapubic catgheter urine and thickened bladder wall on CT suggests urinary tract infection with bacteremia. Diarrhea is not usually a cause of gram negative bacteremia. The patient gives no history of any exposure to anyone else with diarrheal illness or any bad food, which may have induced gastroenteritis. At this time, however, the patient seems comfortable. The gram-negative rods, however, suggest the bacterial sepsis with GI or source. We will initiate antibiotic therapy with cefepime. The patient has been started on oral vancomycin for possible C. difficile disease, although he really has no preexisting antibiotics and the cessation of his symptoms after 24 hours is not typical C. diff; however, is not reasonable to obtain a specimen and sent this for C. difficile disease. There are GI viral panels which could be sent out for 20 or so typical viral gastroenteritis pathogens. This only does not have the history typical with bacterial enteritis like salmonella, Shigella, campylobacter, although again a stool culture could be diagnostic if the patient again has diarrhea. For now, we will repeat blood cultures, start antibiotics and await results of further stool studies. I appreciate the opportunity of input in the care of this complex gentleman. [facility] [address] [place] [address] CONSULTATION Name: RADHA DUMONT Room #: 353-P [facility] IN M.R.#: [id number] Admission: 05/27/18 Attend Phys: Jeison Mar MD Discharge: Date of : 42 Report #: [id number] Thank you for requesting Infectious Disease input. <ELECTRONICALLY SIGNED> By: Alfonso Christian MD 05/29/18 1124 [id number] [id number] Alfonso Christian MD /nt
[2018-05-29 16:17] VITALS: BP 116/62
--- NOTE | 2018-05-29 18:12 | NUR ---
PT WAS NEG FOR CDIFF..ISOLATION DISCONTINUED...
--- NOTE | 2018-05-29 18:13 | NUR ---
PT VERY WEAK..NEEDS TOTAL FEED..POCKETS FOOD AND NEEDS TO BE REMINDED TO SWALLOW..
[2018-05-29 19:05] VITALS: BP 124/56
[2018-05-30 04:20] VITALS: BP 142/85
[2018-05-30 04:38] LABS: CALCIUM 8.1 mg/dL (8.5-10.1); POTASSIUM 4.8 mmol/L (3.5-5.1)
--- NOTE | 2018-05-30 05:07 | NUR ---
Patient making very slow progress towards outcome goals. Awake non verbal most of the time. Difficult to ascertain orientation. Restless in bed. Pood appetite, able to take fluids. Vital signs and rhythm stable. Wound dressings dry and intact.
[2018-05-30 05:34] LABS: HEMATOCRIT 35.1 % (42.0-52.0); HEMOGLOBIN 11.1 gm/dL (14.0-18.0); MCH 25.2 pg (26.0-34.0); MCHC 31.8 g/dL (28.0-37.0); MCV 79.2 fL (80.0-100.0); RBC 4.42 mil/uL (4.50-6.00); RDW 17.5 % (10.5-14.5); WBC 15.9 thou/uL (4.0-11.0)
[2018-05-30 07:40] VITALS: BP 138/61
[2018-05-30 11:32] VITALS: BP 106/56
--- NOTE | 2018-05-30 12:00 | NUR ---
SPC WITH SCANT AMOPUNT OF BLOODY URINE..LEAKING COPIOUS AMOUNTS FROM INSERTION SITE...DR LOMAX NOTIFIED..OBTAINED ORDER TO IRRIGATE SPC BUT UNABLE TO ASPIRATE IRRIGANT...DR LOMAX NOTIFIED..SENT PATIENT TO IR FOR SPC EXCHANGE.. AFTER PATIENT RETURNED FROM IR HIS NEW SPC HAS 125 ML LT PINK/YELLOW URINE OBTAINED...MEDIPORE DRESSING IN PLACE C/D/I...
--- NOTE | 2018-05-30 12:17 | NUR ---
ON-GOING ASSESSMENT: CM REVIEWED CHART AND SPOKE WITH ATTENDING. ATTENDING STATING SHE HAS PLANS TO DISCUSS WITH AND PATIENT TOMORROW ABOUT POSSIBLE DNR/HOSPICE. IF PATIENT IS NEEDING POST ACUTE CARE HE PREFERRED TO GO BACK [facility]. CM SENT REFERRAL TO [facility] AND NOTIFIED THEM PLAN IS BETWEEN HOSPICE PENDING CONVERSATION WITH ATTENDING AND IF NOT THEN WILL PURSUE WITH POST ACUTE CARE. CM WILL CONTINUE TO FOLLOW TO ASSIST NEEDED.
[2018-05-30 16:12] VITALS: BP 137/72
[2018-05-30 20:05] VITALS: BP 139/69
[2018-05-31 04:15] VITALS: BP 109/57
[2018-05-31 04:22] LABS: HEMATOCRIT 34.6 % (42.0-52.0); HEMOGLOBIN 11.4 gm/dL (14.0-18.0); MCH 25.9 pg (26.0-34.0); MCV 78.7 fL (80.0-100.0); RBC 4.4 mil/uL (4.50-6.00); RDW 17.2 % (10.5-14.5); WBC 11.8 thou/uL (4.0-11.0)
--- NOTE | 2018-05-31 05:47 | NUR ---
PATIENT IS ALERT AND ORIENTED. PATIENT IS BEDREST Q2TURN. PATIENT IS ON DIAYLISIS M,W,F. PATIENT HAS A FT AV FISTULA WITH GOOD THRILL AND BRUIT. PATIENT IS NSR ON TELE. PATIENT IS ACHS ACCU-CHEK. PATIENT HAS A POOR APPITITE. PATIENTS LBM WAS TODAY. PATIENT HAS A SUPRA PUBLIC CATH. PATIENT IS ON 2L NC PER COMFORT. PATIENT GOT A PARTAL BED BAD. PATIENTS PAIN IS TREATED WITH PAIN MEDICATION. PATIENT IS RESTING COMFORTABLEY IN BED. WCM. PATIENT IS PROGRESSING TO GOALS.
[2018-05-31 07:45] VITALS: BP 120/68
--- NOTE | 2018-05-31 08:30 | NUR ---
WOUND CONSULT: PT. WAS SEEN ON 05/30/[address] VERA AND MYSELF. PT. HAS STAGE 2 PRESSURE ULCERS TO HIS SACRAL/GLUTEAL REGION AND REPORTS THAT THEY ARE PAINFUL. PT. HAS BREAKDOWN ASSOICATED WITH HIS OLD LEFT BKA STUMP AND RIGHT TMA. PT. ALSO SUFFERES FROM VERY THICK AND DRY SKIN TO BOTH LOWER EXTREMTIYS. RECOMMENDATIONS: WOUND CARE TO RIGHT LEG, RIGHT FOOT AND LEFT BKA STUMP: GENTLY CLEANSE AREA WITH WOUND CLEANSER OR NORMAL SALINE, APPLY AMMOINA LACTATE LOTION, COVER WITH XEROFORM, WRAP WITH KERLIX, SECURE WITH TAPE, COMPLETE CARES DAILY. WOUND CARE TO SACRAL/GLUTEAL REGION: GENLTY CLEANSE AREA WITH WOUND CLEANSER OR NORMAL SALINE, APPLY MOISTURE BARRIER CREAM MIXED WITH SILVADENE/MORPHINE CREAM, LEAVE OPEN TO AIR, COMPLETE CARES BID. TURN Q2 HOURS KEEP PT. OFF WOUND MUCH POSSIBLE. PT. AND STAFF NURSE WERE INSTRUCTED ON PLAN OF CARE.
--- NOTE | 2018-05-31 09:44 | NUR ---
ASSUMED CARE OF PT AROUND 0715, SLEEPING QUIETLY, RESPIRATIONS EVEN. INTRO'D SELF, IS A&0X3 AT THIS TIME, REPORTS OF INTERMITTENT FORGETFULNESS, IMPULSIVITY, SHOWS RETURN DEMO OF CALL LIGHT USE FOR STAFF NEED, AIDE'S TURNING Q2 AND PT DOES SOME BY SELF. ENCOURAGED HIM TO USE CALL LIGHT FOR ANY NEEDS HAS ON 2L NC HERE STATES HE DOES NOT WEAR AT HOME, RATES PAIN, ADM MEDICATION THIS A.M.
--- NOTE | 2018-05-31 12:49 | NUR ---
ON-GOING ASSESSMENT: CM REVIEWED CHART AND SPOKE WITH ATTENDING. ATTENDING IS STATING PATIENT WANTS EVERYTHING DONE AND IS NOT INETERESTED IN DNR OR HOSPICE. CM MET WITH PATIENT AT THE BEDSIDE AND STATING HE REALLY WANTS TO GO BACK TO [facility] HE HAS BEEN THERE IN THE PAST. LIASON FROM [facility] WAS NOTIFIED AND IS SEEKING INSURANCE AUTH. CM ALSO SENT REFERRAL TO [facility] BACKUP PER THEIR REQUEST PATIENT HAS ALSO BEEN THERE IN THE PAST INCASE INSURANCE DOES NOT APPROVE [facility]. CM WILL CONTINUE TO FOLLOW TO ASSIST NEEDED.
[2018-05-31 15:07] VITALS: BP 114/69
--- NOTE | 2018-05-31 15:42 | NUR ---
WOUND FOLLOW UP: PT. WAS SEEN TODAY BY DR. VERA AND MYSELF. PT. WOUNDS ARE STABLE AT THIS TIME. RECOMMENDATIONS: CONTINUE WITH CURRENT PLAN OF CARE. PT. AND STAFF NURSE WERE INSTRUCTED ON PLAN OF CARE.
[2018-05-31 19:40] VITALS: BP 102/63
--- NOTE | 2018-06-01 03:29 | NUR ---
PAITENT IS ALERT TO SELF AND SITUATION. PATIENT IS Q2 TURN. PATIENT IS INCONTIENT. PATIENT HAS NO PAIN TODAY. PATIENT IS ON 2L NC PER COMFORT. PATENT IS ON DIAYLISIS WITH RT FISTULA ( GOOD THRILL AND BRUIT). PATIENT IS NSR C BBB PATIENT IS ACHS. PATIENT HAS SUPRA PUBLIC CATH. PATIENT IS A FEEDER. PATIENT ON PURRED. PATIENT IS RESTING COMFORTABLEY. WCM. PATIENT IS PROGRESSING TO GOALS.
[2018-06-01 04:20] VITALS: BP 106/65
[2018-06-01 08:01] VITALS: BP 105/63
--- NOTE | 2018-06-01 11:28 | NUR ---
GAIL CONTACTED JENNIFER FROM [facility] TO LET HER KNOW PATIENT'S DIALYSIS LOCATION WHICH IS [phone]. JENNIFER TEXTED BACK GAIL AND CONFIRMED SHE RECEIVED INFORMATION.
--- NOTE | 2018-06-01 11:49 | NUR ---
ASSUMED CARE OF PT AT 0700. ASSESSMENT COMPLETED AND CHARTED. PT ALERT, ORIENTED TO SELF, PLACE, AND SITUATION. REGULAR HEART SOUNDS, NO EDEMA. CLEAR/DIM LUNG SOUNDS, NO SOA, [address] ACTIVE BOWEL SOUNDS. SUPRAPUBIC CATHETER IN PLACE, YELLOW URINE NOTED. LEFT BKA AND RIGHT PARTIAL AMPUTATION, DRESSING CHANGE COMPLETED ORDERED. SCARS NOTED. PT REPORTING LOWER EXTREMITY/BOTTOM PAIN, PAIN MEDS GIVEN ORDERED. PT RIGHT FOREARM DIALYSIS FISTULA, THRILL AND BRUIT NOTED. PT LEFT IN STABLE CONDITION FOR DIALYSIS AT 11:17.
--- NOTE | 2018-06-01 13:09 | NUR ---
DIALYSIS NURSE CALLED REPORTING PT IN [address] LOMAX NOTIFIED ABOUT PAIN AND INSTRUCTED TO GIVE ORDERED PAIN MED EARLY. WILL CONTINUE TO MONITOR.
--- NOTE | 2018-06-01 15:50 | NUR ---
WOUND FOLLOW UP: PT. WAS SEEN TODAY BY DR. VERA AND MYSELF. PT. LEGS ARE STARTING TO RESPOND TO THERAPY. RECOMMENDATIONS: CONTINUE WITH CURRENT PLAN OF CARE. PT. AND STAFF NURSE WERE INSTRUCTED ON PLAN OF CARE.
--- NOTE | 2018-06-01 16:55 | NUR ---
PT RETURNED TO ROOM FROM DIALYSIS IN STABLE CONDITION. VSS. NO BLEEDING NOTED FROM GRAFT SITE.
[2018-06-01 17:05] VITALS: BP 120/64
[2018-06-01 19:12] VITALS: BP 120/63
--- NOTE | 2018-06-01 19:14 | NUR ---
END OF SHIFT. PT HAD MINIMAL DINNER INTAKE DUE TO LOW APPETITE. ONE LARGE BM NOTED. NO OTHER CHANGE IN STATUS. PT RESTING IN BED. FAMILY AT BEDSIDE.
[2018-06-02] VITALS (7 sets, daily range): BP systolic 87–138; BP diastolic 53–84
--- NOTE | 2018-06-02 03:23 | NUR ---
Making slow progress towards outcome goals. Vital signs and rhythm stable. Oxygenation optimal with 2L/NC. Suprapubic cath draining yellow urine. Wound care as ordered. Turned to sides.
[2018-06-02 05:54] LABS: CALCIUM 8.3 mg/dL (8.5-10.1); CREATININE 4.7 mg/dL (0.7-1.3); POTASSIUM 4.1 mmol/L (3.5-5.1)
[2018-06-02 08:28] LABS: HEMATOCRIT 31.9 % (42.0-52.0); HEMOGLOBIN 10.3 gm/dL (14.0-18.0); MCH 25.7 pg (26.0-34.0); MCHC 32.4 g/dL (28.0-37.0); MCV 79.3 fL (80.0-100.0); RBC 4.02 mil/uL (4.50-6.00); RDW 17.2 % (10.5-14.5); WBC 12.5 thou/uL (4.0-11.0)
--- NOTE | 2018-06-02 09:50 | NUR ---
DISCHARGE PLANNING. AWAITING INSURANCE AUTH FROM PATIENTS PROVIDER. UPDATED CLINICAL INFORMATION FAXED TO JENNIFER, [facility], FOR AUTH PROCESS. JENNIFER NOTIFIED OF UPDATES FAXED AND WILL CONTACT ONCE INSURANCE AUTH OBTAINED. FOLLOWING TO ASSIST.
--- NOTE | 2018-06-02 10:48 | NUR ---
PATIENT HAS A HEALING PRESSURE ULCER ON COCCYX. SKIN IS PINK AND HEALING. APPLYING MORPHINE SILVADEAN CREAM AND BARRIER CREAM AND LEAVING OPEN TO AIR. SKIN IS VERY THICK AND HARD ON RIGHT LOWER EXTREMITY. CREAM APPLIED AND COVERED WITH XEROFORM AND GAUZE WRAP. SKIN IS VERY HARD ON LEFT BKA WELL. SAME CARE RIGHT LOWER EXTREMITY. PRAFO BOOT TO RLE. Q2 TURN.
--- NOTE | 2018-06-02 10:52 | NUR ---
ASSUMED PATIENT CARE AT 0715. WOUND CARE COMPLETED, SEE NOTE AND CHARTING. SUPRAPUBIC CATHETER REPLACED ON THE May. PATIENT STATES THEY HAVE HAD A SUPRAPUBIC CATH X1 YEAR. THIS MORNING PATIENT WAS BLEEDING FROM [facility]. HOSPITALIST NOTIFIED. BLEEDING WAS THOUGHT TO BE TRAUMA FROM OLD SUPRAPUBIC CATH. NEW SUPRAPUBIC CATHETER WAS IRRIGATED WITH 120 MLS OF NORMAL SALINE. OUTPUT FROM IRRIGATION WAS CLEAR. PATIENT DIZZY WHEN THEY SAT ON EDGE OF BED WITH THERAPY. Q2 TURN. PATIENT NEEDS ASSISTANCE WITH FEEDING. EXTREMITIES WEAK. SPOUSE VERY INVOLVED WITH CARE. WAITING ON INSURANCE AUTH FOR DC.
[2018-06-03 05:02] VITALS: BP 130/66
--- NOTE | 2018-06-03 06:15 | NUR ---
PT MAKING SLOW PROGRESS TOWARDS GOALS. NOTED PT HAD FEVER LATE YESTERDAY AFTERNOON, TREATED WITH TYLENOL. THIS AM PT HAS 102.7 TEMP WITH CORRESPONDING AXILLARY TEMP. TYLENOL GIVEN.
[2018-06-03 07:35] VITALS: BP 116/53
--- NOTE | 2018-06-03 09:41 | HC ---
[facility] [place] [address] CONSULTATION Name: RADHA DUMONT Room #: 353-P [facility] IN .R.#: [id number] Admission: 05/27/18 Attend Phys: Jeison Mar MD Discharge: Date of : 42 Report #: [id number] THIS REPORT FOR: //name// CC: FAM unknown Jeison Mar REASON FOR CONSULTATION: End-stage renal disease. REASON FOR PRESENTATION: Weakness, not feeling well, diarrhea, abdominal pain. HISTORY OF PRESENT ILLNESS: A 77-year-old who is known to have peripheral vascular disease, end-stage renal disease due to diabetes mellitus and hypertension. He presented with sudden onset diarrhea that started yesterday. He missed his dialysis because of that. He has end-stage renal disease, was maintained on dialysis with another group every Wednesday, Wednesday and Wednesday. I am being consulted to manage his end-stage renal disease related issues. He has bilateral amputation. He suffers from chronic lymphedema. He had leukocytosis yesterday and he is being ruled out for C. diff. He had some issues with hypokalemia yesterday and this was replaced. PAST MEDICAL HISTORY: 1. End-stage renal disease. 2. Hypertension. 3. Hyperlipidemia. 4. Coronary artery disease, post CABG. 5. Peripheral vascular disease. 6. Diabetic foot post-amputation. ALLERGIES: LATEX and METFORMIN. SOCIAL HISTORY: No drug or alcohol abuse. Lives with . MEDICATIONS: 1. Nitroglycerin. 2. Labetalol: 3. Plavix. 4. Pantoprazole. 5. Doxazosin. 6. Nifedipine. 7. Atorvastatin. REVIEW OF SYSTEMS: GENERAL: No fever. CARDIOVASCULAR: No chest pain or palpitation. PULMONARY: No cough or hemoptysis. GASTROINTESTINAL: As per history of present illness. MUSCULOSKELETAL: As per the history of present illness. [facility] [address] [place] [address] CONSULTATION Name: RADHA DUMONT Room #: 353-P [facility] IN [facility] [id number] Admission: 05/27/18 Attend Phys: Jeison Mar MD Discharge: Date of : 42 Report #: [id number] PHYSICAL EXAMINATION: VITAL SIGNS: Temperature 37.1, blood pressure 90/49, respiratory rate 18. HEAD AND NECK: No jugular venous distention. Emaciated. CHEST: Decreased air entry bilaterally. CARDIOVASCULAR: No rub. ABDOMEN: Soft, nontender with a suprapubic catheter. LOWER EXTREMITIES: Left below-knee amputation. Chronic lymphedema changes on the right side. LABORATORY VALUES: Reviewed. White blood cell count is up to 33.1, platelet 89. Sodium 133, potassium 4.1. ASSESSMENT, IMPRESSION AND PLAN: 1. Leukocytosis. 2. Diarrhea. 3. End-stage renal disease. 4. Hyperkalemia. 5. We will arrange for the patient to have his usual hemodialysis. 6. He needs extensive septic workup for his leukocytosis and I will defer that to his primary team. He has so many sources as a potential source of his infections including his suprapubic catheter, potential C. diff. He is thrombocytopenic and I will also defer the management of his thrombocytopenia to his primary team. We will avoid heparin with hemodialysis. He was started empirically on vancomycin. We will continue to follow along. <ELECTRONICALLY SIGNED> By: Dewey Schneider MD 06/03/18 0941 0802 1103 Dewey Schneider MD /nt
--- NOTE | 2018-06-03 10:22 | NUR ---
WOUND FOLLOW UP: PT. HAS HYPERKERTOSIS WITH ELEPHTATIS TYPE SKIN TO BILATERAL LOWER EXTREMITYS WITH NO OPEN ULCERATIONS TO BILATERAL LOWER EXTREMITYS. PT. WAS ADMITTED WITH STAGE 2 PRESSURE ULCER TO SACRAL/GLUTEAL REGION BUT, THIS HAS RESOLVED AND PT. NO LONGER ANY ANY OPEN ULCERATION TO THIS AREA EITHER. THERE ARE NO OPEN WOUNDS AT THIS TIME. RECOMMENDATIONS: MOISTURE BARRIER CREAM TO SACRAL/GLUETAL REGION FOR PREVENTION, DAILY AND PRN AMMOIUM LACTAE LOTION TO BILATERAL LOWER EXTREMITYS FOR HYPERKERATOSIS DAILY PT. AND STAFF NURSE WERE INSTRUCTED ON PLAN OF CARE.
[2018-06-03 12:30] LABS: ABSOLUTE NEUTROPHILS 12.8 thou/uL (1.4-8.2); BASOPHILS 0.6 % (0.0-2.0); EOSINOPHILS 0.3 % (0.0-3.0); HEMATOCRIT 32.3 % (42.0-52.0); HEMOGLOBIN 10.4 gm/dL (14.0-18.0); LYMPHOCYTES 4.7 % (24.0-44.0); MCH 25.2 pg (26.0-34.0); MCHC 32.1 g/dL (28.0-37.0); MCV 78.3 fL (80.0-100.0); MONOCYTES 5.3 % (1.0-8.0); POLYS 89.1 % (36.0-66.0); RBC 4.13 mil/uL (4.50-6.00); RDW 17.5 % (10.5-14.5); WBC 14.3 thou/uL (4.0-11.0)
[2018-06-03 12:54] LABS: LARGE PLATELETS FEW; PLATELET COUNT 83 thou/uL (150-400); PLATELET ESTIMATE SLIGHTLY DECREASED
--- NOTE | 2018-06-03 13:43 | NUR ---
on-going assessment: CM REVIEWED CHART AND SPOKE WITH LIASON FROM [facility]. [facility] STATING THEY HAVE INSURANCE AUTH, HOWEVER PATIENT IS RUNNING A FEVER AND NOT MEDICALLY STABLE FOR DISCHARGE. AUTH IS GOOD THROUGH WEDNESDAY AND ATTENDING STATING SHE LIKELY WILL NOT DISCHARGE UNTIL WEDNESDAY. CM NOTIFIED LIASON AT [facility]. CM WILL CONTINUE TO FOLLOW TO ASSIST NEEDED.
[2018-06-03 18:18] LABS: URINE CLARITY SLIGHTLY CLOUDY; URINE COLOR YELLOW; URINE PROTEIN (DIPSTICK) 3+ (Negative); URINE SPECIFIC GRAVITY 1.025 (1.005-1.035)
[2018-06-03 18:19] LABS: ICTOTEST (BILI CONFIRMATORY) Negative (Negative); URINE BILIRUBIN NEGATIVE (Negative); URINE BLOOD 3+ (Negative); URINE GLUCOSE-RANDOM* NEGATIVE (Negative); URINE KETONES TRACE (Negative); URINE LEUKOCYTES-REFLEX 1+ (Negative); URINE NITRITE-REFLEX NEGATIVE (Negative); URINE UROBILINOGEN 0.2 E.U./dl (0.2-1.0)
[2018-06-03 18:30] LABS: AMORPHOUS URATES Many /LPF (None Seen); BACTERIA-REFLEX None Seen /HPF (None Seen); CASTS None Seen /LPF (None Seen); SQUAMOUS None Seen /LPF (0-3); URINE RBC 3-10 Few /HPF (0-2); URINE WBC-REFLEX >25 Many /HPF (0-5); WBC CLUMPS Few (None Seen)
[2018-06-03 19:11] VITALS: BP 103/54
[2018-06-04] VITALS (12 sets, daily range): BP systolic 78–119; BP diastolic 40–68
--- NOTE | 2018-06-04 03:57 | NUR ---
ASSUMED CARE OF PT AT 1900. DROWSY BUT DID ANSWER SIMPLE QUESTIONS WITH RELATED CONTENT. VS STABLE, MONITORING TEMP, AFEBRILE THIS SHIFT. SR W/ BBB AND PVCs ON TELE. 1 RUN OF A 10 BEAT VTACH, STRIP PLACED IN CHART. RETURNED TO SR W/ BBB AND PVCs SPONTANEOUSLY WITHOUT REPEAT OCCURENCE. STARTED SCREAMING OUT IN PAIN AROUND 0200, PAIN MEDS GIVEN, REPOSITIONED, THEN ABLE TO SLEEP FOR A SHORT TIME. 1 LOOSE BM, CLEANED PRN. LOW UOP VIA SUPRAPUBIC CATH DOCUMENTED. HAD DIALYSIS PREVIOUSLY IN THE DAY. FISTULA DRESSING C/D/I. SLOW PROGRESSION TOWARDS POC GOALS.
[2018-06-04 05:40] LABS: HEMATOCRIT 31.6 % (42.0-52.0); HEMOGLOBIN 10.1 gm/dL (14.0-18.0); MCH 25.3 pg (26.0-34.0); MCHC 32.1 g/dL (28.0-37.0); RDW 17.5 % (10.5-14.5); WBC 13.9 thou/uL (4.0-11.0)
[2018-06-04 05:50] LABS: CALCIUM 8.2 mg/dL (8.5-10.1); CREATININE 5.6 mg/dL (0.7-1.3); POTASSIUM 3.5 mmol/L (3.5-5.1)
--- NOTE | 2018-06-04 12:49 | NUR ---
ASSUMED PATIENT CARE AT 0715. A&OX2-3. ABLE TO ANSWER QUESTIONS TODAY WHICH IS AN IMPROVEMENT FROM THE PREVIOUS TWO DAYS. PATIENT YELLING OUT IN THE MORNING IN PAIN. COMPLAINING OF THEIR BOTTOM HURTING. Q2 TURNS AND MORPHINE SILVADEAN CREAM APPLIED TO BOTTOM. AFEBRILE TODAY. PUREED DIET, THIN LIQUIDS. NEEDS TO BE OFFERED LIQUIDS. PATIENT CAN MOVE ARMS BUT FOR SOME REASON IS UNABLE TO FEED SELF OR BATTER MIXER CUPS TO DRINK. SLOWLY WORKING TOWARD DC GOALS. HOURLY ROUNDING TO CHECK NEEDS.
--- NOTE | 2018-06-04 22:54 | NUR ---
VETERINARY TECHNICIAN ASSISTANT called at 2200 for extreme tachycardia. See VETERINARY TECHNICIAN ASSISTANT flowsheet.
--- NOTE | 2018-06-04 23:48 | NUR ---
ASSUMED CARE OF PT AT 1900. MORE RESPONSIVE THAN PREVIOUS SHIFT. VS STABLE AT START OF SHIFT DOCUMENTED, AFEBRILE, SR W/ BBB AND PVCs ON TELE, HR 93. TURNED Q 2HRS, MEDS GIVEN, DAUGHTER WAS AT BEDSIDE. AROUND 2200 PT'S HR ELEVATED UP TO 200'S. CALLED RAT RESPONSE. ORDERS PLACED FOR ICU TRANSFER. TRANSFERRED PT, REPORT GIVEN.
[2018-06-05] VITALS (89 sets, daily range): BP systolic 64–166; BP diastolic 32–66
[2018-06-05 00:12] LABS: HEMATOCRIT 33.8 % (42.0-52.0); HEMOGLOBIN 10.9 gm/dL (14.0-18.0); MCH 25.8 pg (26.0-34.0); MCHC 32.2 g/dL (28.0-37.0); RBC 4.22 mil/uL (4.50-6.00); RDW 17.6 % (10.5-14.5); WBC 23.1 thou/uL (4.0-11.0)
[2018-06-05 00:15] LABS: CALCIUM 7.9 mg/dL (8.5-10.1); POTASSIUM 3.8 mmol/L (3.5-5.1)
[2018-06-05 00:22] LABS: ALBUMIN 2.2 g/dL (3.4-5.0); TOTAL BILIRUBIN 0.7 mg/dL (<0.1-1.0)
[2018-06-05 08:11] LABS: RBC 4.8 mil/uL (4.50-6.00); RDW 17.6 % (10.5-14.5)
[2018-06-05 08:12] LABS: HEMATOCRIT 38.1 % (42.0-52.0); HEMOGLOBIN 12.2 gm/dL (14.0-18.0); MCH 25.4 pg (26.0-34.0); MCHC 31.9 g/dL (28.0-37.0); MCV 79.5 fL (80.0-100.0); WBC 30.1 thou/uL (4.0-11.0)
--- NOTE | 2018-06-05 08:17 | NUR ---
PT ARRIVED IN ICU FROM 3W AT APPROX 2220. PT WAS TX'D TO ICU DUE TO SUSTAINED SVT, WITH THE RATE IN THE 190s. TOTAL OF TWO 150 MG AMIO BOLUSES GIVEN AND AMIO GTT INITIATED. PT'S RHYTHM IS NOW SR WITH A BBB. BP WAS SOFT, 500 CC NS BOLUS GIVEN. BP STILL NOT IMPROVING, PT STARTED ON LEVO GTT. MENTATION IS MUCH IMPROVED SINCE LAST NIGHT, PT IS EASY TO AROUSE AND RESPONDS APPROPRIATELY. TROPONIN NOW TRENDING DOWN SINCE LAST NIGHT, EKG ORDERED FOR THIS AM. ASSESSMENTS AND VITALS DOCUMENTED. WILL CONTINUE TO MONITOR.
[2018-06-05 09:09] LABS: ALBUMIN 2.3 g/dL (3.4-5.0); CALCIUM 8.1 mg/dL (8.5-10.1); CREATININE 7.5 mg/dL (0.7-1.3); TOTAL BILIRUBIN 0.7 mg/dL (<0.1-1.0); TOTAL PROTEIN 7.8 g/dL (6.4-8.2)
--- NOTE | 2018-06-05 11:31 | EKG ---
[place] [address] [facility] [place] [address] ELECTROCARDIOGRAM REPORT Name: RADHA DUMONT Room #: 244-P ADM IN M.R.#: [id number] Admission: 05/27/18 Attend Phys: Jeison Mar MD Discharge: Date of : 42 Report #: [id number] THIS REPORT FOR: //name// [facility] Test Date: 2018-06-04 Test Time: 22:39:38 Pat Name: RADHA DUMONT Department: Room: 244 P Gender: M Supervisor Special Services: JULIA : 1940 Requested By: Clifford Cho Order Number: [id number] MD: Clifford Cho Measurements Intervals [place] Rate: 114 P: 266 CO: 128 QRS: -53 QRSD: 145 T: 96 QT: 370 QTc: 510 Interpretive Statements Sinus tachycardia with irregular rate RBBB and LAFB Abnrm T, consider ischemia, anterolateral lds Compared to ECG 06/20/2013 14:32:38 Possible ischemia now present Sinus rhythm no longer present Short CO interval no longer present Bifascicular block no longer present Myocardial infarct finding no longer present Electronically Signed On 06-05-2018 11:31:22 RACING MECHANIC by Clifford Cho [email or web address] <ELECTRONICALLY SIGNED> By: Clifford Cho MD 06/05/18 1131 2239 2239 Clifford Cho MD /EPI
--- NOTE | 2018-06-05 11:31 | EKG ---
[address] [place] [address] ELECTROCARDIOGRAM REPORT Name: RADHA DUMONT GÉNESIS Room #: 244-P ADM IN M.R.#: [id number] Admission: 05/27/18 Attend Phys: Jeison Mar MD Discharge: Date of : 42 Report #: [id number] THIS REPORT FOR: //name// [facility] Test Date: 2018-06-04 Test Time: 23:33:41 Pat Name: RADHA DUMONT Department: Room: 244 P Gender: M Certified Meeting Professional: JUAN : 1940 Requested By: Clifford Cho Order Number: [id number] MD: Clifford Cho Measurements Intervals [place] Rate: 180 P: 248 OH: 135 QRS: 229 QRSD: 151 T: 125 QT: 300 QTc: 520 Interpretive Statements Extreme tachycardia with wide complex, no further rhythm analysis attempted Baseline wander in lead(s) V5 Compared to ECG 06/20/2013 14:32:38 Sinus rhythm no longer present Short OH interval no longer present Right bundle-branch block no longer present Left anterior fascicular block no longer present Bifascicular block no longer present Myocardial infarct finding no longer present Electronically Signed On 06-05-2018 11:31:32 DIGITAL RESEARCH ANALYST by Clifford Cho [email or web address] <ELECTRONICALLY SIGNED> By: Clifford Cho MD 06/05/18 1131 2333 2333 Clifford Cho MD /EPI
[2018-06-05 14:18] LABS: URINE CLARITY CLOUDY; URINE COLOR YELLOW; URINE SPECIFIC GRAVITY 1.025 (1.005-1.035)
[2018-06-05 14:19] LABS: ICTOTEST (BILI CONFIRMATORY) Negative (Negative); URINE BILIRUBIN NEGATIVE (Negative); URINE BLOOD 3+ (Negative); URINE GLUCOSE-RANDOM* NEGATIVE (Negative); URINE KETONES TRACE (Negative); URINE NITRITE-REFLEX POSITIVE (Negative); URINE PROTEIN (DIPSTICK) 3+ (Negative); URINE UROBILINOGEN 0.2 E.U./dl (0.2-1.0)
[2018-06-05 14:20] LABS: URINE LEUKOCYTES-REFLEX 2+ (Negative)
[2018-06-05 14:28] LABS: SQUAMOUS 0-3 Few /LPF (0-3)
[2018-06-05 14:29] LABS: BACTERIA-REFLEX >30 Many /HPF (None Seen); CASTS None Seen /LPF (None Seen); CRYSTALS None Seen /LPF (None Seen); MUCUS 0-3 Light strn/LPF (None Seen); URINE RBC >20 Many /HPF (0-2); URINE WBC-REFLEX >25 Many /HPF (0-5)
--- NOTE | 2018-06-05 18:40 | NUR ---
SHIFT SUMMARY: PT DROWSY, EASILY AWAKENED, ALERT. SR WITH R BBB, TITRATED LEVOPHED TO KEEP MAP GREATER THAN 65, INITIALLY 6 MCG/MIN, TITRATED OFF THEN RESTARTED AT 2 MCG/MIN. AMIODARONE 0.5 MG/MIN, POOR APPETITE HOWEVER PT DID EAT PER ENCOURAGEMENT OF RN AND FAMILY. PICC TEAM PLACED 18G IV IN LIJ FOR ADDITIONAL IV ACCESS. URINE OUTPUT 10 CC PER SUPRAPUBIC RODRIGUEZ. BLOOD CULTURES X 2, SPUTUM AND URINE SENT TO LAB, THEN ANTIBIOTIC STARTED. FAMILY PRESENT INTERMITTENTLY THROUGH SHIFT- PROVIDED SUPPORT TO PT.
--- NOTE | 2018-06-05 22:09 | EKG ---
[address] [address] ELECTROCARDIOGRAM REPORT Name: RADHA DUMONT GÉNESIS Room #: 244-P ADM IN M.R.#: [id number] Admission: 05/27/18 Attend Phys: Jeisno Mar MD Discharge: Date of : 42 Report #: [id number] THIS REPORT FOR: //name// [facility] Test Date: 2018-06-04 Test Time: 22:06:24 Pat Name: RADHA DUMONT Department: Room: 244 P Gender: M Site Acquisition Manager: cornelio : 1940 Requested By: Jeison Mar Order Number: [id number] MD: Jose R Elizondo Measurements Intervals [place] Rate: 198 P: 62 SD: 78 QRS: 217 QRSD: 151 T: 127 QT: 292 QTc: 530 Interpretive Statements SUPRAVENTRICULAR TACHYCARDIA RBBB Possible rate related ischemia Electronically Signed On 06-05-2018 22:09:18 LATHE SET UP OPERATOR by Jose R Elizondo [email or web address] <ELECTRONICALLY SIGNED> By: Jose R Elizondo MD 06/05/182208 05 05 MD TYE Peck
[2018-06-06] VITALS (55 sets, daily range): BP systolic 85–127; BP diastolic 41–63
[2018-06-06 04:22] LABS: ABSOLUTE NEUTROPHILS 16.3 thou/uL (1.4-8.2); BASOPHILS 0.4 % (0.0-2.0); EOSINOPHILS 0.9 % (0.0-3.0); HEMATOCRIT 29.8 % (42.0-52.0); LYMPHOCYTES 5.4 % (24.0-44.0); MCH 25.9 pg (26.0-34.0); MCV 78.5 fL (80.0-100.0); MONOCYTES 5.6 % (1.0-8.0); PLATELET COUNT 80 thou/uL (150-400); POLYS 87.7 % (36.0-66.0); RBC 3.79 mil/uL (4.50-6.00); RDW 17.5 % (10.5-14.5); WBC 18.5 thou/uL (4.0-11.0)
[2018-06-06 04:26] LABS: HEMOGLOBIN 9.8 gm/dL (14.0-18.0)
[2018-06-06 04:53] LABS: ALBUMIN 1.8 g/dL (3.4-5.0); CALCIUM 7.6 mg/dL (8.5-10.1); CREATININE 8.2 mg/dL (0.7-1.3); POTASSIUM 3.9 mmol/L (3.5-5.1); TOTAL BILIRUBIN 0.7 mg/dL (<0.1-1.0); TOTAL PROTEIN 7.1 g/dL (6.4-8.2)
--- NOTE | 2018-06-06 06:00 | NUR ---
PT MUCH MORE AWAKE NOW THIS HOUR. COMPLETE BATH GIVEN MCDANIELS LEG ABD COCCYX DSG DRY AND INTACT. HAD 2 SOFT BROWN STOOLS LAST NOCT, WILL CONBT TO MONITOR
--- NOTE | 2018-06-06 07:38 | HC ---
[facility] [place] [address] CONSULTATION Name: JULIARADHA GÉNESIS Room #: 244-P [facility] IN ..#: [id number] Admission: 05/27/18 Attend Phys: Jeison Mar MD Discharge: Date of : 42 Report #: [id number] THIS REPORT FOR: //name// CC: FAM unknown Jeison Mar DATE OF SERVICE: 05/30/2018 CHIEF COMPLAINT: Ulcerations of bilateral lower extremities and sacral ulceration. HISTORY OF PRESENT ILLNESS: This is a 77-year-old male patient with history of hypertension, hyperlipidemia, coronary artery disease, diabetic foot ulcerations and end-stage renal disease. He was admitted for profuse diarrhea. He is being worked up and treated for this. He is also noted to have ulcerations on his right foot as well as left BKA. He has had previous right transmetatarsal amputation. The patient is a little bit confused, not able to provide much information about himself. PAST MEDICAL HISTORY: Positive for end-stage renal disease requiring hemodialysis, diabetes, peripheral vascular disease, previous left BKA, right transmetatarsal amputation, history of prostate cancer, cerebrovascular accident, MRSA, suprapubic catheter and coronary artery disease. ALLERGIES: LATEX AND METFORMIN. MEDICATIONS: Include nitroglycerin, RenaPlex, labetalol, Plavix, iron, pantoprazole, PhosLo, antacid, Flomax, Lipitor, nifedipine, doxepin, Cardura, Ultram. SOCIAL HISTORY: Unknown at this time. REVIEW OF SYSTEMS: Really not able to be obtained due to the patient's decreased level of consciousness and confusion. PHYSICAL EXAMINATION: VITAL SIGNS: At this time include pulse 92, respiratory rate of 16, blood pressure 130/61, temperature 98.3. GENERAL: This is a chronically ill-appearing male patient who appears to be in minimal distress. HEENT: Head normocephalic. Nose and throat are clear. NECK: Supple. LUNGS: Clear. ABDOMEN: Soft. Suprapubic catheter is noted. EXTREMITIES: Demonstrate a right transmetatarsal amputation with a small area of ulceration on the distal foot and heel. These are superficial. He has a [facility] [address] [place] [address] CONSULTATION Name: RADHA DUMONT Room #: 244-P [facility] IN .R.#: [id number] Admission: 05/27/18 Attend Phys: Jeison Mar MD Discharge: Date of : 42 Report #: [id number] left below-knee amputation with a contracture at the knee and some ulceration in that popliteal space. He has some mild tenderness and some scattered areas of what appeared to be stage 2 ulceration of the sacral region. CLINICAL IMPRESSION: 1. Ulceration to the right lower extremity following transmetatarsal amputation. 2. Diabetes mellitus. 3. Peripheral arterial disease. 4. Flexion contracture, left knee with ulceration in the popliteal fossa. 5. Stage 2 sacral gluteal pressure ulceration. 6. End-stage renal disease requiring dialysis. 7. Diabetes mellitus. RECOMMENDATIONS: At this point in time, the patient will be placed on a low air loss mattress. He will have q. 2 hour turning and repositioning. We will recommend topical Silvadene, morphine and zinc to the sacral region. Recommend AmLactin and Xeroform gauze followed by gentle compression to both lower extremities. I think the contracture of the left knee is not going to be treatable. He may require a higher level amputation at some point, but there is certainly not any evidence of limb threatening infection at this time. I do appreciate being asked to see the patient in consultation. <ELECTRONICALLY SIGNED> By: Jaime Perkins MD 06/06/18 0738 1813 0210 Jaime Perkins MD /nt
--- NOTE | 2018-06-06 08:07 | NUR ---
PT TRANSFERRED TO ICU; ON HOLD FOR OCCUPATIONAL THERAPY DUE TO CHANGE IN STATUS; NEW PHYSICIAN ORDERS NEEDED WHEN/IF APPROPRIATE.
--- NOTE | 2018-06-06 08:23 | HC ---
[facility] [place] [address] CONSULTATION Name: JULIARADHA GÉNESIS Room #: 244-P [facility] IN ..#: [id number] Admission: 05/27/18 Attend Phys: Jeison Mar MD Discharge: Date of : 42 Report #: [id number] THIS REPORT FOR: //name// CC: FAM unknown Jeison Mar DATE OF SERVICE: 06/05/2018 INDICATION: SVT. HISTORY OF PRESENT ILLNESS: This is a 77-year-old gentleman with history of CABG, peripheral vascular disease status post amputation, hypertension, end-stage renal disease, diabetes mellitus who was initially admitted with diarrhea. He was found to have urinary tract infection with gram-negative sonja, managed with antibiotics. He also has multiple wounds in his lower extremities and sacral area, managed by wound care. Last evening, he went into a rapid heart rate, approximately 196 beats per minute. Review of the ECG reveals a narrow complex tachycardia. His blood pressure was on the low side, unable to treat with AV node blocking agents. He was treated with amiodarone as per protocol. He is presently in sinus rhythm, denies any complaints of angina or dyspnea. Interestingly, when he was tachycardic, he did not experience any palpitations or lightheadedness. PAST MEDICAL HISTORY: CABG x5 vessels in 2012, history of peripheral vascular disease, status post left above-knee amputation and right transmetatarsal amputation. End-stage renal disease, on dialysis; hypertension, diabetes mellitus. ALLERGIES: LATEX AND METFORMIN. MEDICATIONS: Include heparin 5000 units b.i.d., amiodarone as per protocol, ceftriaxone, Levophed. SOCIAL HISTORY: Negative for tobacco use. FAMILY HISTORY: Negative for premature CAD. REVIEW OF SYSTEMS: A full 10-point review of systems performed. Only the pertinent positives and negatives are described in the HPI. PHYSICAL EXAMINATION: VITAL SIGNS: Blood pressure is 111/60, heart rate is 64 beats per minute. GENERAL APPEARANCE: A well-developed, well-nourished male in no acute distress. HEENT: Normocephalic/atraumatic. Oral mucosa moist. NECK: Supple. LUNGS: Diminished breath sounds at the bases, otherwise clear. [facility] [address] [place] [address] CONSULTATION Name: RADHA DUMONT Room #: 244-P [facility] IN [facility].#: [id number] Admission: 05/27/18 Attend Phys: Jeison Mar MD Discharge: Date of : 42 Report #: [id number] CARDIAC: Regular rate and rhythm, S1, S2 positive, 1/6 systolic murmur. ABDOMEN: Soft, nontender. EXTREMITIES: Left AKA, right transmetatarsal amputation. Both legs are bandaged. ECG reveals sinus rhythm, right bundle-branch block, left anterior hemiblock, nonspecific ST segment abnormalities. LABORATORY VALUES: White count is 30.1, hemoglobin is 12.2. Peak troponin is 20.25, potassium is 3.8, creatinine 7.0. ASSESSMENT AND PLAN: 1. Wide complex tachycardia, probable supraventricular tachycardia with aberrancy. Not clinically symptomatic at that time. He did have hypotension, which has persisted even with normal heart rates. The cause of his hypotension is probably noncardiac at this time. Due to the low blood pressure, we are unable to add any AV node blocking agent such as beta joe. We will continue with amiodarone as per protocol. 2. Non-ST elevation myocardial infarction, troponin of 20. He offers no complaints of angina. Suspect that he has underlying ischemia, exacerbated with the rapid heart rate. He remained stable at this time, continue with aspirin and statin therapy. Beta joe when his blood pressure allows. 3. Hypertension, presently on pressor support. He has several sources of infection, rule out sepsis. Continue with antibiotics and gentle hydration. I doubt that this is related to cardiac issue as his heart rate is in the 60s at this time. 4. End-stage renal disease, continue dialysis. 5. Peripheral vascular disease, continue wound care. 6. Urinary tract infection, continue antibiotics, as per ID. <ELECTRONICALLY SIGNED> By: Clifford Cho MD 06/06/18 0823 0911 1210 Clifford Cho MD /nt
--- NOTE | 2018-06-06 09:27 | NUR ---
PT PLACED ON HOLD FROM P.T. DUE TO A DECLINE IN MEDICAL STATUS WITH SUBSEQUENT TX TO ICU.
--- NOTE | 2018-06-06 10:06 | NUR ---
PT TRANSFERRED TO ICU OVER WEEKEND WITH HYPOTENSION AND ARRHYTHMIA. PRESSORS NOW OFF AND PLAN TO SWITCH AMIO TO PO. DC PLAN HAS BEEN SKILLED REHAB AT [facility]. WILL NEED TO START OVER WITH INSURANCE AUTH FOR [facility]. MIGDALIA TO JENNIFER IN ADMISSIONS AT [facility].
--- NOTE | 2018-06-06 10:54 | NUR ---
ALL DRESSINGS CHANGES COMPLETED, WELL TOLERATED. SR WITH RBBB AND PVC'S. DR. SANTOS PRESENT. AMIODARONE PO STARTED, ROOM AIR, REFUSED BREAKFAST, SUPRAPUBIC CATHETER WITH SCANT URINE OUTPUT, HEMODIALYSIS IN PROGRESS. CALLED TO INQUIRE ON PT STATUS, UPDATED.
--- NOTE | 2018-06-06 15:05 | 2DMMODE ---
[place] [address] [place] [address] 2 D/M-MODE ECHOCARDIOGRAM Name: RADHA DUMONT Room #: 244-P ADM IN ..#: [id number] Admission: 05/27/18 Attend Phys: Jeison Mar MD Discharge: Date of : 42 Date of Service: 06/06/18 1504 Report #: [id number] THIS REPORT FOR: //name// APPROVED REPORT Study performed: 06/06/2018 13:53:44 EXAM: Comprehensive 2D, Doppler, and color-flow Echocardiogram Patient Location: ICU Room #: [facility] Status: routine BSA: 2.04 HR: 74 bpm BP: 87/41 mmHg Rhythm: NSR Other Information Study Quality: Adequate Indications Arrhythmia Hypertension/HDD SVT Volumes Left Atrial Volume (Systole) LA ESV Index: 27.00 mL/m2 Tricuspid Valve PA Pressure: 29.00 mmHg Left Ventricle The left ventricle is normal size. There is hypokinesis of the inferior wall. Moderate concentric left ventricular hypertrophy. Left ventricular systolic function is mild to moderately decreased. LVEF is 40%. Grade II - pseudonormal filling dynamics. Right Ventricle Right ventricle is at the upper limits of normal. Right ventricle is hypokinetic. Atria The left atrium size is normal. Right atrium is dilated. [address] [place] [address] 2 D/M-MODE ECHOCARDIOGRAM Name: RADHA DUMONT Room #: 244-P ADM IN M.R.#: [id number] Admission: 05/27/18 Attend Phys: Jeison Mar MD Discharge: Date of : 42 Date of Service: 06/06/18 1504 Report #: [id number] Aortic Valve The aortic valve is normal in structure. Aortic valve is calcified. No aortic regurgitation is present. There is no aortic valvular stenosis. Mitral Valve The mitral valve is normal in structure. There is no mitral valve regurgitation noted. No evidence of mitral valve stenosis. Tricuspid Valve The tricuspid valve is normal in structure. There is mild tricuspid regurgitation. Estimated PAP 29 mmHg plus the right atrial pressure. There is mild pulmonary hypertension. Pulmonic Valve The pulmonary valve is normal in structure. Trace to mild pulmonic regurgitation. Great Vessels The aortic root is normal in size. IVC is not well visualized. Pericardium There is no pericardial effusion. <Conclusion> The left ventricle is normal size. Moderate concentric left ventricular hypertrophy. Left ventricular systolic function is mild to moderately decreased. Grade II - pseudonormal filling dynamics. Right ventricle is at the upper limits of normal. The left atrium size is normal. Right atrium is dilated. Aortic valve is calcified. There is no mitral valve regurgitation noted. There is mild tricuspid regurgitation. Estimated PAP 29 mmHg plus the right atrial pressure. There is mild pulmonary hypertension. <ELECTRONICALLY SIGNED> By: Clifford Cho MD 06/06/18 1504 1504 1504 Clifford Cho MD /INF
--- NOTE | 2018-06-06 15:40 | NUR ---
NO FLUID REMOVAL DURING DIALYSIS. VERY DROWSY AFTER DIALYSIS, EASILY AWAKENED. SPOKE WITH AND DAUGHTER REGARDING DNR STATUS OR POTENTIAL HOSPICE. CONTINUE CURRENT CODE STATUS. REPORT GIVEN TO JUSTIN BASURTO RN. PT TRANSFERRED TO 204 PER ICU BED, ACCOMPANIED BY ICU NURSES.
--- NOTE | 2018-06-06 18:17 | NUR ---
RECEIVED FROM ICU VSS, NSR WITH BBB, LUNGS DIMINISHED, O2 SAT RA IS 97%. ORINTER TO PERSON, HOSPITAL, MONTH AND YEAR, FORGETFUL, REORIENTS. SUPRAPUBIC CATHETER INTACT NO OUTPUT, INCONTINENT STOOL, SEE WOUND DOCUMENTATION FROM ICU DRESSINGS INTACT. WILL CONTINUE TO MONITER AND CARE FOR PT PER PLAN OF CARE
[2018-06-07 00:16] VITALS: BP 101/45
--- NOTE | 2018-06-07 03:17 | NUR ---
ASSUMED CARE 1900. VSS. ASSESSMENT CHARTED.SR W/BBB ON MONITOR. DAUGHTER AT BEDSIDE BEGINNING OF NIGHT. PT ALERT, MUST BE REORIENTED AT TIMES. PT C/O BUTTOCK PAIN CONTROLED WITH PRN PAIN MEDS PER EMAR. Q2 TURNS HELP WITH PAIN. SACRAL DRESSING CDI. FLOAT BOOTS IN PLACE. SUPRAPUBIC CATH IN PLACE, TRACE URINE. PT SLEEPING THROUGHOUT NIGHT, RESTLESS AT TIMES. ABX PER EMAR. PLAN FOR LABS THIS AM. WILL CONTINUE TO MONITOR AND WITH POC.
[2018-06-07 04:45] VITALS: BP 123/63
[2018-06-07 07:46] VITALS: BP 111/58
[2018-06-07 09:08] LABS: HEPATITIS B SURFACE AG Negative (Negative)
[2018-06-07 11:41] VITALS: BP 115/45
--- NOTE | 2018-06-07 13:18 | NUR ---
Sp with [facility], patients dialysis is [facility]. [facility] reports they will assist with transport for patient. Plan cath .Cont to update.
--- NOTE | 2018-06-07 13:49 | NUR ---
[facility]. SHE RECEIVED UPDATE AND WILL FOLLOW PT. DCP TO FOLLOW.
--- NOTE | 2018-06-07 13:49 | NUR ---
WOUND FOLLOW UP: PT. WAS SEEN TODAY BY DR. VERA AND MYSELF. PT. WOUND CARE HAD BEEN DONE BY HIDE SELECTOR. DRESSING ARE C/D/I AT THIS TIME. RECOMMENDATIONS: CONTINUE WITH CURRENT PLAN OF CARE. PT. AND STAFF NURSE WERE INSTRUCTED ON PLAN OF CARE.
--- NOTE | 2018-06-07 14:51 | NUR ---
VSS REMAINS NSR WITH BBB WITH FEW PVC'S, LUNGS DIMINISHED , O2 SAT RA IS 90-93%, NO URINE OUTPUT THROUGH SUPRAPUBIC CATHETER. SEE WOUND DOCUMENTATION FOR LEGS, BUTTOCKS. TURN EVERY 2 HOURS. APPETITE REMAINS POOR, PT TOO WEAK TO FEED SELF. TOLERATING PUREED FOOD. WILL CONTINUE TO MONITER AND CARE FOR PT PER PLAN OF CARE
[2018-06-07 15:48] VITALS: BP 90/50
[2018-06-07 20:15] VITALS: BP 97/49
--- NOTE | 2018-06-08 03:12 | NUR ---
ASSUMED CARE 1899. ASSESSMENT CHARTED. PT C/O BUTTOCK WOUND PAIN, CONTROLED WITH PRN PAIN MEDS PER EMAR AND Q2 TURNS. PT HAS SUPRAPUBIC CATH IN PLACE, OLIGURIA. TOLERATING PUREED DIET. SEE WOUND CARE NOTES/INTERVENTIONS. X2 LARGE LOOSE STOOL. PLAN FOR LABS AND DIALYSIS THIS AM. PLAN FOR CARDIAC CATH ON WEDNESDAY, CONSENTS SIGNED. WILL CONTINUE TO MONITOR AND WITH POC.
[2018-06-08 04:01] LABS: CALCIUM 8.2 mg/dL (8.5-10.1); POTASSIUM 3.9 mmol/L (3.5-5.1)
[2018-06-08 04:12] LABS: CREATININE 6.7 mg/dL (0.7-1.3)
[2018-06-08 04:45] VITALS: BP 121/56
[2018-06-08 08:31] VITALS: BP 135/55
--- NOTE | 2018-06-08 12:16 | NUR ---
WOUND FOLLOW UP: PT. WAS SEEN TODAY BY DR. JOHNSON AND MYSELF. PT. WOUNDS ARE STABLE AT THIS TIME. RECOMMENDATIONS: CONTINUE WITH CURRENT PLAN OF CARE. PT. AND STAFF NURSE WERE INSTRUCTED ON PLAN OF CARE.
[2018-06-08 13:13] VITALS: BP 101/52
--- NOTE | 2018-06-08 18:28 | NUR ---
PT DRESSINGS CHANGED AND PICTURES TAKEN. PT HAD DIALYSIS THIS EVENING REMOVED 700 ML. PT AND DAUGHTER AT BEDSIDE. PT CONFUSED AND HOLLERING OUT THROUGHOUT DAY.
[2018-06-08 20:28] VITALS: BP 94/44
[2018-06-09] VITALS (7 sets, daily range): BP systolic 81–144; BP diastolic 39–64
--- NOTE | 2018-06-09 03:32 | NUR ---
AOX4. COMPLAINT OF PAIN ON BILATERAL LOWER EXTREMITIES, BUTTOCKKS. PRN MEDS GIVEN W/C AFFORDED RELIEF. TURNING Q 2 HOURS DONE. ORAL CARE DONE. BED BATH USING CHLORHEXIDINE WIPES DONE. SUPRAPUBIC CATHETER ON, OLIGURIC, DRAINING TO A DARK YELLOWISH OUTPUT. COMPLAINT OF PAIN ON THE IV SITE, FLUSHED WITH NSS, LEAKING NOTED. IV SITE DISCONTINUED. IV REINSERTED TO LEFT UPPER ARM G20, FLUSHES WELL WITH GOOD BACK FLOW, PT DENIES ANY PAIN. PATIENT INSTRUCTED ON NPO EXCEPT MEDS WITH SIPS OF WATER. FOR CARDIAC CATH and RIGHT LEG ARTERIOGRAM THIS AM, CONSENT SIGNED AND ATTACHED TO CHART. FF UP POC.
--- NOTE | 2018-06-09 12:17 | NUR ---
Pt having cardiac cath today d/t RI. [facility] updated. They will resubmit for skilled auth once dc date determined. They have coordinated with his dialysis clinic in [place] for outpt tx MWF at ut.
--- NOTE | 2018-06-09 14:30 | NUR ---
ASSUMED PATIENT CARE THIS AM. PATIENT LYING IN BED, A&O. NC @ 2L. FAMILY AT BEDSIDE. WOUND CARE TO SACRUM PERFORMED THIS AM. REPOSTION Q2H FOR PAIN MANAGEMENT/WOUND CARE. PATIENT OFF UNIT AROUND 1215 WITH CARDIAC CUSTOMER ADVOCATE NURSE.
--- NOTE | 2018-06-09 19:31 | NUR ---
PATIENT RETURNED TO UNIT AROUND 1730 FROM FAMILY AND CONSUMER SCIENCES PROFESSOR. LEFT GROIN SITE, C/D/I, NO HEMATOMA. SEE FLOW SHEET IN CHART. BEDREST FOR TWO HOURS.
[2018-06-10 00:23] VITALS: BP 106/55
[2018-06-10 04:42] VITALS: BP 122/55
[2018-06-10 05:20] LABS: ABSOLUTE NEUTROPHILS 17.3 thou/uL (1.4-8.2); BASOPHILS 0.8 % (0.0-2.0); EOSINOPHILS 0.5 % (0.0-3.0); HEMATOCRIT 31.2 % (42.0-52.0); LYMPHOCYTES 4.7 % (24.0-44.0); MCH 25.3 pg (26.0-34.0); MCHC 31.9 g/dL (28.0-37.0); MCV 79.3 fL (80.0-100.0); MONOCYTES 3.6 % (1.0-8.0); PLATELET COUNT 199 thou/uL (150-400); POLYS 90.4 % (36.0-66.0); RBC 3.94 mil/uL (4.50-6.00); RDW 17.6 % (10.5-14.5); WBC 19.1 thou/uL (4.0-11.0)
[2018-06-10 05:44] LABS: ALBUMIN 1.9 g/dL (3.4-5.0); CALCIUM 8.2 mg/dL (8.5-10.1); CREATININE 6.6 mg/dL (0.7-1.3); POTASSIUM 4.7 mmol/L (3.5-5.1); TOTAL BILIRUBIN 0.9 mg/dL (<0.1-1.0); TOTAL PROTEIN 7.6 g/dL (6.4-8.2)
--- NOTE | 2018-06-10 06:19 | NUR ---
pt resting quietly in bed thru the noc, left groin remains cdi, 1 pain pill given at hs for c/o back pain, turning q2 hrs and prn, will con't to monitor per ppoc.
[2018-06-10 07:25] VITALS: BP 95/53
[2018-06-10] MEDS ORDERED: ELIQUIS5 MG PO (08:50)
[2018-06-10] MEDS ORDERED: ASPIR 8181 MG PO (08:50)
--- NOTE | 2018-06-10 09:19 | CATHLAB ---
[facility] [address] [place] [address] INVASIVE PROCEDURE REPORT Name: RADHA DUMONT Room #: 204-P [facility] ..#: [id number] Admission: 05/27/18 Attend Phys: Jeison Mar MD Discharge: Date of : 44 Date of Service: 06/10/18 0919 Report #: [id number] THIS REPORT FOR: //name// APPROVED REPORT Study performed: 06/09/2018 16:27:11 Patient Details Patient Status: In-Patient Room #: The patient is a 77 year-old male Event Personnel Clifford Cho Personal Lines Agent, Bandar Mcintosh Monitor, Christiano Lima RN Glass Mold Repairer, Demetrice Palafox RTR, WEAVER NEEDLE LOOM Scrub Procedures Performed Left Heart Cath Coronaries, Bypass Grafts [id number] [facility] Indication Non-STEMI , Arrhythmia Risk Factors Hypercholesterolemia, Coronary Artery DiseaseHypertensionRenal Failure Previous Procedures/Diagnoses Previous CABG, Previous MIPrevious Vascular Surgery Procedure Narrative The Left Groin^ was infiltrated with 1% Lidocaine subcutaneous anesthesia. A 5F 11CM CORDIS sheath was inserted into the LFA^. Coronary angiography was performed using coronary diagnostic catheters. The right coronary system was accessed and visualized with a 5FR JR 4 #[id number] catheter. The left coronary system was accessed and visualized with a 5FR JL5 #[id number] catheter. Left ventricular/Aortic Valve gradient assessed via catheter pullback. Closure device was deployed with a 6 Fr 6F Fish closure. The patient tolerated the procedure well and there were no complications associated with the procedure. There was no hematoma. Intraoperative Conscious Sedation Sedation start time: 14.04 Case end Time: 17.20 [facility] [address] [place] [address] INVASIVE PROCEDURE REPORT Name: JULIARADHA CAPPS Room #: 204-P [facility]#: [id number] Admission: 05/27/18 Attend Phys: Jeison Mar MD Discharge: Date of : 44 Date of Service: 06/10/18 0919 Report #: [id number] Fentanyl mcg Versed mg Fluoro Time: 7.50 minutes Dose: DAP 8009 cGycm2 9.50 mGy Contrast Type and Amount: Visipaque 270 ml Coronary Angiography The patient's coronary anatomy is co- dominant. Diagnostic Cath Left Main There is a borderline stenosis, 50-60% at the distal segment. Recommend medical therapy. LAD There is ostial stenosis, 70%. There is a patent MASSEY graft with an end-to-side anastomosis to the mid LAD. After the anastomosis, there is both retrograde and antegrade unobstructed flow in the [employer] LAD. Diagonal 1 Small-caliber vessel, with no flow-limiting lesions. There is an occluded SVG at the proximal segment to the first diagonal artery. Circumflex There is mild diffuse disease proximally, 30%. Supplies to OM vessels. OM1 This is a patent vessel, with no flow-limiting lesions. OM2 This is a patent vessel, with no flow-limiting lesions. Right Coronary This is occluded at the proximal segment. R PDA This is partially filled via collateral flow from the LAD. Left Ventriculography Left Ventriculography was not performed. An LVEDP was checked and there is no gradient across the outflow tract. Hemodynamics The aortic pressure is 142/44 mmHg with a mean of 80 mmHg. The left ventricular pressure is 130/16 mmHg with a mean of mmHg. The left ventricular end diastolic pressure is 23 mmHg. There was no gradient across the aortic valve upon pullback. Pullback from the left ventricle to the aorta revealed no gradient across the aortic valve. PCI Technique Lesion Percutaneous coronary intervention was performed on the Unspecified. Conclusion 1. Borderline stenosis in the distal left main, supplying the [employer] [facility] [address] [place] [address] INVASIVE PROCEDURE REPORT Name: RADHA DUMONT Room #: 204-P [facility]#: [id number] Admission: 05/27/18 Attend Phys: Jeison Mar MD Discharge: Date of : 44 Date of Service: 06/10/18 0919 Report #: [id number] left circumflex artery. Recommend medical therapy. 2. Patent MASSEY graft to the LAD. 3. Partial collateral filling of a small PDA. 4. Recommend aggressive risk factor management. <ELECTRONICALLY SIGNED> By: Clifford Cho MD 06/10/18918 8 8 Clifford Cho MD /INF
[2018-06-10 11:30] VITALS: BP 108/52
--- NOTE | 2018-06-10 13:01 | NUR ---
WOUND FOLLOW UP: PT. WAS SEEN TODAY BY DR. VERA AND MYSELF. PT. WOUNDS ARE STABLE AND NON-CHANGING AT THIS TIME. RECOMMENDATIONS: CONTINUE WITH CURRENT PLAN OF CARE. PT. AND STAFF NURSE WERE INSTRUCTED ON PLAN OF CARE.
--- NOTE | 2018-06-10 13:52 | NUR ---
Case discussed with the care team and dc community planner to fax update to [facility] . The pt will need PT/OT to reeval. He had dialysis this am and had continued c/o pain and needed repositioning. Pt continues on IV atb with elev wbc. No appetite per nursing. Admissions at [facility] indicates that they can not accept the pt until he is sitting up out of bed for a couple of hours and able to tolerate w/c van transport to outpt dialysis 3xwkly. Recommendations for consideration of palliative care noted in his chart, however the pt and his spouse have not been receptive. Will follow.
[2018-06-10 15:50] VITALS: BP 103/57
--- NOTE | 2018-06-10 18:05 | NUR ---
ASSUMED PATIENT CARE THIS AM. PATIENT LYING IN BED, A&O, NC @ 2L. NO N/V STATED. PAIN MANAGED WITH ORAL MEDICATION AND REPOSITIONING. FALL RISK. BUSINESS SERVICES OFFICER IN PLACE. WOUND CARE PROVIDED BY THIS RN TODAY PER ORDERS. TOLERATING THIN LIQUIDS, SMALL BITES OF FOOD. LOW APPETITE. FAMILY AT BEDSIDE THIS AFTERNOON. DIALYSIS THIS MORNING. PRAFO BOOT IN PLACE, RIGHT FOOT.
[2018-06-10 19:01] VITALS: BP 97/52
--- NOTE | 2018-06-10 21:58 | NUR ---
PT IS ALERT AND ORIENTED X 2-3. HE IS FREQUENTLY CONFUSED AND FORGETFUL. HE DENIES PAIN AT THIS TIME. PT BEING TURNED Q2H TOLERATED. ASSESSMENT CHARTED. WILL CONTINUE TO MONITOR.
[2018-06-11 04:51] VITALS: BP 107/53
[2018-06-11 05:38] LABS: ABSOLUTE NEUTROPHILS 16.5 thou/uL (1.4-8.2); BASOPHILS 0.4 % (0.0-2.0); EOSINOPHILS 0.7 % (0.0-3.0); HEMATOCRIT 30.8 % (42.0-52.0); HEMOGLOBIN 9.9 gm/dL (14.0-18.0); LYMPHOCYTES 6.3 % (24.0-44.0); MCH 25.6 pg (26.0-34.0); MCHC 32.1 g/dL (28.0-37.0); MCV 79.7 fL (80.0-100.0); MONOCYTES 3.3 % (1.0-8.0); PLATELET COUNT 164 thou/uL (150-400); POLYS 89.3 % (36.0-66.0); RBC 3.86 mil/uL (4.50-6.00); RDW 17.7 % (10.5-14.5); WBC 18.5 thou/uL (4.0-11.0)
[2018-06-11 07:30] VITALS: BP 94/46
[2018-06-11 11:30] VITALS: BP 93/41
--- NOTE | 2018-06-11 17:16 | NUR ---
ASSESSMENT COMPLETED AND DOCUMENTED. PT LETHARGIC AND IN PAIN. ATTEMPTED TO GIVE PO MAIN MED IN APPLESAUCE. PT UNABLE TO SWALLOW. INFORMED PHYSICIAN ON INABLITY TO SWALLOW. REQUESTED IV PAIN MEDICATION. PT NOT EATING. AND FAMILY AT BEDSIDE. WANTED TO TALK WITH HOSPICE NURSE. CALLED AND TALKED TO GOMEZ AT HOSPICE, GOMEZ SENDING NURSE THIS AFTERNOON TO SPEAK WITH FAMILY. THIS NURSE HELPED WOUND CARE DR WITH WOUNDS. AT APPROX 1430 THIS NURSE WHEELED THE FROM FAMILY ROOM INTO PT ROOM AND PT HAVING AGONAL BREATHING. PT UNRESPONSIVE TO STERNAL RUB. THIS NURSE ASKED THE IF SHE WANTED ALL MEASURES DONE. GAMAL THE STATED YES. NEELAM MARCELINO CALLED AT 1432. PT HR IN 70S. PHYSICIAN ENTERED ROOM AND INFORMED TEAM THE PT WAS DNR. THIS NURSE WENT TO IN WAITING ROOM TO VERIFY. AGREED TO DNR. PT GIVEN MORPHINE FOR AIR HUNGER. THIS NURSE AND ANOTHER NURSE CALLED TIME OF AT 1502 AT BEDSIDE AFTER HEARING NO HEART SOUNDS, NO FEMORAL PULSE, ASYTOLE ON MONITOR. PACKET FILLED OUT. CONSULTING PHYSICAN NOTIFIED. SECURITY NOTIFIED.
== END 2018-06-11 13:02 | DRG 853 ==
LOC: ER 11:16 → EROBS 13:08 → 3W 13:08 → ICU 06-04 22:57 → 2N 06-06 15:46
PROVIDERS: Emergency Medicine; Hospitalist; Internal Medicine; Internal Medicine Infectious Disease; Nurse Practitioner; Nurse Practitioner Acute Care; Specialist; ADMIT Hospitalist
PROC: 5A1D70Z Performance of Urinary Filtration, Intermittent, Less than 6 Hours Per Day (ICD-10-PCS; principal; 2018-05-28)
PROC: BT1B1ZZ Fluoroscopy of Bladder and Urethra using Low Osmolar Contrast (ICD-10-PCS; 2018-05-30)
PROC: 0T2BX0Z Change Drainage Device in Bladder, External Approach (ICD-10-PCS; 2018-05-30)
PROC: 5A1D70Z Performance of Urinary Filtration, Intermittent, Less than 6 Hours Per Day (ICD-10-PCS; 2018-05-30)
PROC: 5A1D70Z Performance of Urinary Filtration, Intermittent, Less than 6 Hours Per Day (ICD-10-PCS; 2018-06-01)
PROC: 5A1D70Z Performance of Urinary Filtration, Intermittent, Less than 6 Hours Per Day (ICD-10-PCS; 2018-06-03)
PROC: 5A1D70Z Performance of Urinary Filtration, Intermittent, Less than 6 Hours Per Day (ICD-10-PCS; 2018-06-08)
PROC: 04CM3ZZ Extirpation of Matter from Right Popliteal Artery, Percutaneous Approach (ICD-10-PCS; 2018-06-09)
PROC: 4A023N7 Measurement of Cardiac Sampling and Pressure, Left Heart, Percutaneous Approach (ICD-10-PCS; 2018-06-09)
PROC: B218YZZ Fluoroscopy of Left Internal Mammary Bypass Graft using Other Contrast (ICD-10-PCS; 2018-06-09)
PROC: B211YZZ Fluoroscopy of Multiple Coronary Arteries using Other Contrast (ICD-10-PCS; 2018-06-09)
PROC: 047M3DZ Dilation of Right Popliteal Artery with Intraluminal Device, Percutaneous Approach (ICD-10-PCS; 2018-06-09)
PROC: 047K3DZ Dilation of Right Femoral Artery with Intraluminal Device, Percutaneous Approach (ICD-10-PCS; 2018-06-09)
PROC: B4181ZZ Fluoroscopy of Bilateral Renal Arteries using Low Osmolar Contrast (ICD-10-PCS; 2018-06-09)
PROC: 5A1D70Z Performance of Urinary Filtration, Intermittent, Less than 6 Hours Per Day (ICD-10-PCS; 2018-06-10)
DX: A41.89 Other specified sepsis (principal); L89.153 Pressure ulcer of sacral region, stage 3; N18.6 End stage renal disease; I21.4 Non-ST elevation (NSTEMI) myocardial infarction; G92 Toxic encephalopathy; N39.0 Urinary tract infection, site not specified; E44.0 Moderate protein-calorie malnutrition; I47.1 Supraventricular tachycardia; I42.9 Cardiomyopathy, unspecified; E87.1 Hypo-osmolality and hyponatremia; I12.0 Hypertensive chronic kidney disease with stage 5 chronic kidney disease or end stage renal disease; E11.51 Type 2 diabetes mellitus with diabetic peripheral angiopathy without gangrene; I25.10 Atherosclerotic heart disease of native coronary artery without angina pectoris; E78.00 Pure hypercholesterolemia, unspecified; E87.5 Hyperkalemia; E78.5 Hyperlipidemia, unspecified; M24.562 Contracture, left knee; E11.22 Type 2 diabetes mellitus with diabetic chronic kidney disease; D69.6 Thrombocytopenia, unspecified; B96.89 Other specified bacterial agents as the cause of diseases classified elsewhere; Z66 Do not resuscitate; M62.84 Sarcopenia; E87.6 Hypokalemia; B96.4 Proteus (mirabilis) (morganii) as the cause of diseases classified elsewhere; L85.9 Epidermal thickening, unspecified; I46.9 Cardiac arrest, cause unspecified; D64.9 Anemia, unspecified; Z85.46 Personal history of malignant neoplasm of prostate; Z79.4 Long term (current) use of insulin; Z86.73 Personal history of transient ischemic attack (TIA), and cerebral infarction without residual deficits; Z88.8 Allergy status to other drugs, medicaments and biological substances; Z91.040 Latex allergy status; Z87.891 Personal history of nicotine dependence; Z89.511 Acquired absence of right leg below knee; Z95.1 Presence of aortocoronary bypass graft; Z68.29 Body mass index [BMI] 29.0-29.9, adult; Z99.2 Dependence on renal dialysis
CPT/HCPCS: 10078; 10081; 10879; 32100